=== PATIENT | male | born 1935 | race Caucasian/White ===

== ENCOUNTER 2016-07-07 15:29 | Inpatient (IN) | payer OTHER, MEDICARE ==
[~2016-07-07] VITALS: Ht 175.3 cm; Wt 110.3 kg
[~2016-07-07 15:29] MED LIST: ALLO100T PO; BAYE325T3 PO; DILTSR120 PO; FURO1TAB93 PO; ISOS20 PO; LACT PO; LIDO5%T TOP; NEUR400C PO; NITR.3 SL; NOVOLOGP2 SQ; OXYC1SOL5 PO; PRAV40TA PO; PROS5TAB2 PO; SERO25TA PO; SERT-132 PO; STOO100T PO; TOPR100T15 PO; VITA100018 PO
[2016-07-07 15:38] VITALS: BP 110/53; PULSE 45; RESP 14; TEMP 98.5; O2SAT 99
[2016-07-07] MEDS ORDERED: PIPERACIL-TAZO 3.375 GM PREMIX 50 ML IV ONE (15:45)
[2016-07-07] MEDS ORDERED: VANCOMYCIN INJ 1,000 MG in SODIUM CHLOR 0.9% 250 ML INJ 250 ML IV ONE (15:45)
[2016-07-07] MEDS ORDERED: SODIUM CHLOR 0.9% 1000 ML INJ 1,000 ML IV ONE ×2 (15:45)
[2016-07-07 15:58] VITALS: BP 110/58; PULSE 44; RESP 19; TEMP 98.5; O2SAT 99
[2016-07-07 17:14] LABS: APTT (PATIENT) 28.7 SEC (24.3-30.1); INTERNATIONAL NORMALIZED RATIO 1.2 RATIO; PROTHROMBIN TIME - PATIENT 13.1 SEC (9.8-11.6)
[2016-07-07 17:17] LABS: AUTOMATED NEUTROPHIL # 5.7 TH/MM3 (1.8-7.7); BASOPHIL # 0.1 TH/MM3 (0-0.2); BASOPHIL % 0.6 % (0.0-2.0); EOSINOPHIL # 0.2 TH/MM3 (0-0.4); HEMATOCRIT 27.3 % (39.0-51.0); HEMO FLAGS DIFF FINAL; LYMPH % 37.2 % (9.0-44.0); LYMPHOCYTE # 3.9 TH/MM3 (1.0-4.8); MEAN CELL VOLUME 89.7 FL (80.0-100.0); MEAN CORPUSCULAR HEMOGLOBIN 28.8 PG (27.0-34.0); MEAN CORPUSCULAR HGB CONC 32.1 % (32.0-36.0); MONO % 5.6 % (0.0-8.0); NEUT % 54.6 % (16.0-70.0); PLATELET COUNT 156 TH/MM3 (150-450); RED BLOOD COUNT 3.04 MIL/MM3 (4.50-5.90); RED CELL DISTRIBUTION WIDTH 17.2 % (11.6-17.2); WHITE BLOOD COUNT 10.5 TH/MM3 (4.0-11.0)
[2016-07-07 17:17] LABS: BACTERIA, URINE RARE /hpf; BLOOD, URINE SMALL (NEG); GLUCOSE,URINE NEG (NEG); HYALINE CAST, URINE 17 /lpf (RARE); KETONE, URINE NEG (NEG); NITRITE,URINE NEG (NEG); URINE COLOR YELLOW (YELLW/STRAW)
[2016-07-07 17:18] VITALS: BP 111/53; PULSE 45; RESP 22; O2SAT 100
[2016-07-07 17:18] LABS: COMMENT (UR) CATH-CULTURE IND; CULTURE IF INDICATED CATH CULTURE IND
--- NOTE | 2016-07-07 17:20 | PD ---
HPI Chief Complaint: Respiratory Distress Time Seen by Provider: 15:38 Travel History International Travel<30 days: No Contact w/Intl Traveler<30days: No Traveled to known affect area: No History of Present Illness HPI Patient is an 81-year-old male sent to the emergency room by the [facility] physicians for evaluation of sepsis. As per patient, he went to the [facility] today for a well checkup, reports that he was complaining of shortness of breath at that time. Patient was hypotensive and tachycardic and bradycardic while in the [facility], it was suggested for patient to go to the emergency room for evaluation of possible sepsis. Patient reports that on route to the emergency room, he became diaphoretic and very short of breath. Patient reports that he feels short of breath at this time. Patient denies chest pain. Patient denies any cough or congestion. Patient with no other complaints at this time. PFSH Past Medical History Hx Anticoagulant Therapy: Yes Arthritis: Yes (knees and back) Heart Rhythm Problems: Yes (PVC's) Cancer: Yes (bladder) Cardiac Catheterization: Yes Cardiovascular Problems: Yes (CABG, chf) High Cholesterol: Yes Chemotherapy: Yes Chest Pain: Yes (uses NTG) Congestive Heart Failure: Yes COPD: Yes Cerebrovascular Accident: Yes Diabetes: Yes Endocrine: Yes GERD: Yes Genitourinary: Yes (history of bladder cancer) Hepatitis: No Hiatal Hernia: No Hypertension: Yes Immune Disorder: No Musculoskeletal: Yes Neurologic: Yes Psychiatric: No Reproductive: No Respiratory: Yes Thyroid Disease: No Triglycerides - High: Yes PNEUMOCCOCAL Vaccine (Year): 3 ?: Not Past Surgical History Abdominal Surgery: Yes Appendectomy: Yes Cardiac Surgery: Yes (CABG - 1979) Coronary Artery Bypass Graft: Yes Coronary Stent: Yes Ear Surgery: No Eye Surgery: Yes (cataracts 5 years ago) Genitourinary Surgery: Yes (bladder cancer X 8 most recent cysto Mar, 2014) Gynecologic Surgery: Yes (CYSTO) Joint Replacement: Yes (LEFT KNEE) Oral Surgery: Yes (teeth extracted 20 years) Pacemaker: Yes Thoracic Surgery: No Other Surgery: Yes Social History Alcohol Use: No Tobacco Use: No Substance Use: No Allergies-Medications (Allergen,Severity, Reaction): Coded Allergies: Metformin (Verified Allergy, Severe, DIARRHEA, 04/20/15) Morphine (Verified Allergy, Severe, 04/20/15) Reported Meds & Prescriptions Reported Meds & Active Scripts Active Reported Sertraline (Sertraline HCl) 50 Mg Tab 50 Mg PO DAILY Gabapentin 300 Mg Cap 300 Mg PO TID Lasix (Furosemide) 80 Mg Tab 80 Mg PO BID Aspirin 325 Mg Tab 325 Mg PO DAILY Ferrous Gluconate 325 Mg Tab 325 Mg PO DAILY Duoneb (Ipratropium-Albuterol Neb) 0.5-2.5 Mg/3 Ml Neb 1 Nebule INH Q6HR NEB Bengay Greaseless Topical (Menthol-Methyl Salicylate Topical) 10-15 % Cream 1 Applic TOP TID PRN Tylenol-Codeine #3 (Acetaminophen-Codeine) 300-30 mg Tab 1 Tab PO Q4H PRN Lisinopril 5 Mg Tab 5 Mg PO DAILY Novolin 70-30 Inj (Insulin Human Isoph/Insulin Regular) 1,000 Unit/10 Ml Vial 65 Units SQ BID Terazosin (Terazosin HCl) 1 Mg Cap 1 Mg PO HS Metoprolol Tartrate 50 Mg Tab 50 Mg PO BID Allopurinol 300 Mg Tab 300 Mg PO DAILY Pravastatin 40 Mg Tab 40 Mg PO HS Aquaphor (Emollient) 1 Oin Oin 1 Applic TOP BID Isosorbide Dinitrate 10 Mg Tab 10 Mg PO TID Hyoscyamine (Hyoscyamine Sulfate) 0.125 Mg Tab 0.125 Mg PO Q4H PRN Artificial Tears Opth Drops (Polyvinyl Alcohol) 1.4% Soln 1 Drop EACH EYE TID PRN Review of Systems General / Constitutional: No: Fever Eyes: No: Visual changes HENT: No: Headaches Cardiovascular: Positive: Diaphoresis, No: Chest Pain or Discomfort Respiratory: Positive: Shortness of Breath Gastrointestinal: No: Abdominal Pain Genitourinary: No: Dysuria Musculoskeletal: No: Pain Skin: No Rash Neurologic: No: Weakness Psychiatric: No: Depression Endocrine: No: Polydipsia Hematologic/Lymphatic: No: Easy Bruising Physical Exam Narrative GENERAL: Moderate distress SKIN: Warm and dry. Patient pale-appearing HEAD: Atraumatic. Normocephalic. EYES: Pupils equal and round. No scleral icterus. No injection or drainage. ENT: No nasal bleeding or discharge. Mucous membranes pink and moist. NECK: Trachea midline. No JVD. CARDIOVASCULAR: Patient bradycardic. No murmur appreciated. Patient diaphoretic RESPIRATORY: No accessory muscle use. Clear to auscultation. Breath sounds equal bilaterally. GASTROINTESTINAL: Abdomen soft, non-tender, nondistended. Hepatic and splenic margins not palpable. MUSCULOSKELETAL: No obvious deformities. No clubbing. No cyanosis. No edema. NEUROLOGICAL: Awake and alert. No obvious cranial nerve deficits. Motor grossly within normal limits. Normal speech. PSYCHIATRIC: Appropriate mood and affect; insight and judgment normal. Data Data Last Documented VS Vital Signs Date Time Temp Pulse Resp B/P Pulse Ox O2 Delivery O2 Flow Rate FiO2 07/07/16 18:15 40 20 102/51 96 Nasal Cannula 3 07/07/16 15:58 98.5 Orders Electrocardiogram (07/07/16 15:38) Complete Blood Count With Diff (07/07/16 15:38) Comprehensive Metabolic Panel (07/07/16 15:38) Prothrombin Time / Inr (Pt) (07/07/16 15:38) Act Partial Throm Time (Ptt) (07/07/16 15:38) Lactic Acid Sepsis Protocol (07/07/16 15:38) Magnesium (Mg) (07/07/16 15:38) Lipase (07/07/16 15:38) Ckmb (Isoenzyme) Profile (07/07/16 15:38) Troponin I (07/07/16 15:38) Urinalysis - C+S If Indicated (07/07/16 15:38) Influenzae A/B Antigen (07/07/16 15:38) Blood Culture (07/07/16 15:38) Sodium Chlor 0.9% 1000 Ml Inj (Ns 1000 M (07/07/16 15:45) Sodium Chlor 0.9% 1000 Ml Inj (Ns 1000 M (07/07/16 15:45) Piperacil-Tazo 3.375 Gm Premix (Zosyn 3. (07/07/16 15:45) Vancomycin Inj (Vancomycin Inj) (07/07/16 15:45) Urine Culture (07/07/16 16:30) Ceftriaxone Inj (Rocephin Inj) (07/07/16 17:30) CKMB (07/07/16 16:00) CKMB% (07/07/16 16:00) Chest, Single Ap (07/07/16 17:43) Urinary Catheter Insert/Apply (07/07/16 18:31) Labs Laboratory Tests Test 07/07/16 07/07/16 16:00 16:30 White Blood Count 10.5 TH/MM3 Red Blood Count 3.04 MIL/MM3 Hemoglobin 8.8 GM/DL Hematocrit 27.3 % Mean Corpuscular Volume 89.7 FL Mean Corpuscular Hemoglobin 28.8 PG Mean Corpuscular Hemoglobin 32.1 % Concent Red Cell Distribution Width 17.2 % Platelet Count 156 TH/MM3 Mean Platelet Volume 10.5 FL Neutrophils (%) (Auto) 54.6 % Lymphocytes (%) (Auto) 37.2 % Monocytes (%) (Auto) 5.6 % Eosinophils (%) (Auto) 2.0 % Basophils (%) (Auto) 0.6 % Neutrophils # (Auto) 5.7 TH/MM3 Lymphocytes # (Auto) 3.9 TH/MM3 Monocytes # (Auto) 0.6 TH/MM3 Eosinophils # (Auto) 0.2 TH/MM3 Basophils # (Auto) 0.1 TH/MM3 CBC Comment DIFF FINAL Differential Comment Prothrombin Time 13.1 SEC Prothromb Time International 1.2 RATIO Ratio Activated Partial 28.7 SEC Thromboplast Time Sodium Level 129 MEQ/L Potassium Level 6.2 MEQ/L Chloride Level 91 MEQ/L Carbon Dioxide Level 26.4 MEQ/L Anion Gap 12 MEQ/L Blood Urea Nitrogen 86 MG/DL Creatinine 5.07 MG/DL Estimat Glomerular Filtration 11 ML/MIN Rate Random Glucose 115 MG/DL Calcium Level 8.5 MG/DL Magnesium Level 2.5 MG/DL Total Bilirubin 0.2 MG/DL Aspartate Amino Transf 18 U/L (AST/SGOT) Alanine Aminotransferase 15 U/L (ALT/SGPT) Alkaline Phosphatase 79 U/L Total Creatine Kinase 130 U/L Creatine Kinase MB 3.8 NG/ML Troponin I 0.04 NG/ML Total Protein 6.8 GM/DL Albumin 3.2 GM/DL Lipase 78 U/L Urine Color YELLOW Urine Turbidity CLOUDY Urine pH 5.0 Urine Specific [place] 1.019 Urine Protein 30 mg/dL Urine Glucose (UA) NEG mg/dL Urine Ketones NEG mg/dL Urine Occult Blood SMALL Urine Nitrite NEG Urine Bilirubin NEG Urine Urobilinogen LESS THAN 2.0 MG/DL Urine Leukocyte Esterase LARGE Urine RBC 20 /hpf Urine WBC /hpf Urine Bacteria RARE /hpf Urine Hyaline Casts 17 /lpf Urine Yeast (Budding) FEW Microscopic Urinalysis Comment CATH-CULTURE IND Lactic Acid Level 1.4 mmol/L MDM Medical Decision Making Medical Screen Exam Complete: Yes Emergency Medical Condition: Yes Interpretation(s) Vital Signs Date Time Temp Pulse Resp B/P Pulse Ox O2 Delivery O2 Flow Rate FiO2 07/07/16 15:58 98.5 44 19 110/58 99 Nasal Cannula 4 07/07/16 15:38 98.5 45 14 110/53 99 EKG at 1533: Sinus bradycardia at 44 bpm, QT/QTC 502/365, first-degree AV block Differential Diagnosis ACS, arrhythmia, pneumonia, CHF, electrolyte abnormality, sepsis, UTI Narrative Course Patient is an 81-year-old male who presents to emergency room for evaluation of possible sepsis. Patient reports that he has not been feeling well over the past few days, reports that he went to his primary care doctor's office [facility] the [facility] for a well checkup today. Patient was hypotensive, tachycardic and bradycardic, the [facility] doctors were concerned for possible sepsis and sent patient to the emergency room for evaluation. Patient reports that he felt diaphoretic and shortness of breath while being transported to the ER from [facility]. EKG obtained once patient arrived to ER. Patient was placed on a monitoring manager. Labs as well as blood cultures, x-ray chest ordered. Patient's creatinine is 5.07, patient with acute renal insufficiency. A Rosales catheter was ordered to measure accurate I's and O's. Patient's creatinine on July 22, 2016 was 2.96 Physician Communication Physician Communication case reviewed with dr zacarias who accepts pt to service, request admission under name of Dr Sam Diagnosis Primary Impression: Acute renal insufficiency Additional Impressions: UTI (urinary tract infection) Qualified Code: N30.01 - Acute cystitis with hematuria Bradycardia Admitting Information Admitting Physician Requests: Admit Aida Stern DO Jul 07, 2016 17:20
[2016-07-07] MEDS ORDERED: cefTRIAXone INJ 1,000 MG in SODIUM CHLORIDE 0.9% INJ 100 ML IV ONE (17:30)
[2016-07-07 17:42] LABS: ALKALINE PHOSPHATASE 79 U/L (45-117); CREATINE KINASE 130 U/L (39-308); TOTAL BILIRUBIN ADULT 0.2 MG/DL (0.2-1.0)
[2016-07-07 17:44] LABS: ALT (GPT) 15 U/L (12-78); ANION GAP 12 MEQ/L (5-15); AST (GOT) 18 U/L (15-37); BICARBONATE 26.4 MEQ/L (21.0-32.0); BLOOD UREA NITROGEN 86 MG/DL (7-18); CHLORIDE 91 MEQ/L (98-107); GLOMERULAR FILTRATION RATE 11 ML/MIN (>89); MAGNESIUM 2.5 MG/DL (1.5-2.5); POTASSIUM 6.2 MEQ/L (3.5-5.1); SODIUM (NA) 129 MEQ/L (136-145)
[2016-07-07 17:54] LABS: CKMB 3.8 NG/ML (0.5-3.6)
[2016-07-07] MEDS ORDERED: AQUAOIN2 TOP (17:54)
[2016-07-07] MEDS ORDERED: TERA1CAP3 PO (17:54)
[2016-07-07] MEDS ORDERED: POLY99.0 EACH EYE (17:54)
[2016-07-07] MEDS ORDERED: METO50TA PO (17:54)
[2016-07-07] MEDS ORDERED: HYOS0.128 PO (17:54)
[2016-07-07] MEDS ORDERED: PRAV40TA2 PO (17:54)
[2016-07-07] MEDS ORDERED: ALLO300T2 PO (17:54)
[2016-07-07] MEDS ORDERED: ISOS10TA PO (17:54)
[2016-07-07] MEDS ORDERED: NOVO7030P2 SQ (17:57)
[2016-07-07] MEDS ORDERED: BENGCRE TOP (17:57)
[2016-07-07] MEDS ORDERED: TYLETAB34 PO (17:57)
[2016-07-07] MEDS ORDERED: LISI-519 PO (17:57)
[2016-07-07] MEDS ORDERED: GABA300C5 PO (18:00)
[2016-07-07] MEDS ORDERED: SERT-132 PO (18:00)
[2016-07-07] MEDS ORDERED: FERR325T72 PO (18:00)
[2016-07-07] MEDS ORDERED: IPRASOL INH (18:00)
[2016-07-07] MEDS ORDERED: ASPI325T PO (18:00)
[2016-07-07] MEDS ORDERED: FURO1TAB61 PO (18:00)
[2016-07-07 18:15] VITALS: BP 102/51; PULSE 40; RESP 20; O2SAT 95; O2SAT 96
--- NOTE | 2016-07-07 18:21 | RADRPT ---
EXAM DATE/TIME: 07/07/2016 18:00 [facility] COMPARISON: CHEST SINGLE AP, April 20, 2015, 13:14. INDICATIONS : Chest pain. MEDICAL HISTORY : Congestive heart failure. Chronic obstructive pulmonary disease. SURGICAL HISTORY : CABG. ENCOUNTER: Initial ACUITY: 2 days PAIN SCORE: 3/10 LOCATION: chest FINDINGS: There is evidence for prior median sternotomy. Moderate cardiomegaly is seen. Bilateral pleural effus ions are present with perivascular pulmonary edema and pneumonia is difficult to exclude in the lung bases. CONCLUSION: Volume overload and CHF. Sheryl Garzon MD on July 07, 2016 at 18:19 Board Certified Radiologist. This report was verified electronically.
[2016-07-07] MEDS ORDERED: NALOXONE HCL 0.4 MG/ML AMP IV PRN (20:15)
[2016-07-07] MEDS ORDERED: SODIUM CHLORIDE 0.9% FLUSH 5 ML FLUSH FLUSH PRN (20:15)
[2016-07-07] MEDS: SODIUM CHLORIDE 0.9% FLUSH 5 ML FLUSH FLUSH SCH (21:58)
[2016-07-07 22:28] VITALS: BP 102/50; PULSE 51; RESP 18; O2SAT 97
[2016-07-08] VITALS (10 sets, daily range): BP systolic 90–130; BP diastolic 45–60; PULSE 46–68; RESP 18–20; TEMP 97–98.2; O2SAT 92–100
[2016-07-08] MEDS ORDERED: ACETAMINOPHEN 325 MG TAB PO ONE (03:45)
--- NOTE | 2016-07-08 04:14 | HHI.HP ---
[facility] Ad[facility] Diagnosis Acute renal insuffiency, uti, bradycardia Diagnoses: Chief Complaint: Very tired Travel History International Travel<30 Days: No Contact w/Intl Traveler <30 Da: No Traveled to Known Affected Are: No History of Present Illness History from patient, ER physician notes, and review of medical records. Patient is somewhat of a poor historian. He initially stated that he came to the hospital because he was very tired. He knew that something happened at the [facility] but he was in able to specify it initially. However he states he has been extremely tired for the past 6 weeks. He states he was also having some nausea. But did not vomit. He stated he just was too weak that he could not even lift up his hand to press the TV but 10. He thinks that that is abnormal. He reports this was the reason why he made appointment with his primary care doctor at the [facility]. However at the [facility] yesterday, patient was found to be hypotensive, with heart rate going between tachycardia and bradycardia as per notes. It was also reported that patient was short of breath and diaphoretic at the clinic. There for that doctor there had sent him to the hospital for evaluation of sepsis. In the emergency room, patient received normal saline 2 L IV fluids total Patient however denies any recent fever/nausea/vomiting/diarrhea. He denies seeing blood in his stool or urine. Also denies any fever. Denies chest pain/palpitations. Denies any falls. Review of Systems Except as stated in HPI: all other systems reviewed are Neg Past Family Social History Past Medical History Hypertension Diabetes CADstatus post CABG [facility] echo in April 2015reviewed. CVA Bladder cancer Anemia Peripheral neuropathy CKDstage III Osteoporosis Depression Gout Past Surgical History Bladder cancer excisions Appendectomy Cataract surgery bilaterally Left knee surgery Neck surgery Reported Medications Patient's medications listed on EMRreviewed. This is reconciled by pharmacy clinical coordinator. Allergies: Coded Allergies: Metformin (Verified Allergy, Severe, DIARRHEA, 04/20/15) Morphine (Verified Allergy, Severe, 04/20/15) Family History Patient denies any family history of any medical issues. Per chart, there was family history of ND and cancers Social History Denies smoking/alcohol abuse/drug abuse. Per chart, he was a former smoker. Physical Exam Vital Signs Vital Signs Date Time Temp Pulse Resp B/P Pulse Ox O2 Delivery O2 Flow Rate FiO2 07/08/16 04:04 98.2 48 20 111/53 99 07/08/16 00:08 50 20 90/45 92 Nasal Cannula 3 07/07/16 22:29 97 Nasal Cannula 3 07/07/16 22:28 51 18 102/50 97 Nasal Cannula 3 07/07/16 18:15 40 20 102/51 96 Nasal Cannula 3 07/07/16 17:30 42 24 98 Nasal Cannula 3 07/07/16 17:18 45 22 111/53 100 Nasal Cannula 3 07/07/16 15:58 98.5 44 19 110/58 99 Nasal Cannula 4 07/07/16 15:38 98.5 45 14 110/53 99 Physical Exam GENERAL: This is elderly gentleman, not in acute distress, however looks chronically ill. SKIN: Superficial ecchymosis HEAD: Atraumatic. Normocephalic. No temporal or scalp tenderness. EYES: . No scleral icterus. No injection or drainage. ENT: Nose without bleeding, purulent drainage or septal hematoma. . Airway patent. NECK: Trachea midline. No JVD Supple, nontender, no meningeal signs. CARDIOVASCULAR: Regular rate and rhythm without murmurs, gallops, or rubs. RESPIRATORY: Bilateral expiratory wheezing mild. GASTROINTESTINAL: Abdomen soft, non-tender, nondistended. No guarding. : Patient has Rosales catheter. Was placed in ER. MUSCULOSKELETAL: Extremities without clubbing, cyanosis, or edema. Right lower extremity much bigger than the left. Bilateral pitting edema about 2+. NEUROLOGICAL: Awake and alert.Motor and sensory grossly within normal limits. Normal speech. Laboratory Laboratory Tests Test 07/07/16 07/07/16 16:00 16:30 White Blood Count 10.5 Red Blood Count 3.04 Hemoglobin 8.8 Hematocrit 27.3 Mean Corpuscular Volume 89.7 Mean Corpuscular Hemoglobin 28.8 Mean Corpuscular Hemoglobin 32.1 Concent Red Cell Distribution Width 17.2 Platelet Count 156 Mean Platelet Volume 10.5 Neutrophils (%) (Auto) 54.6 Lymphocytes (%) (Auto) 37.2 Monocytes (%) (Auto) 5.6 Eosinophils (%) (Auto) 2.0 Basophils (%) (Auto) 0.6 Neutrophils # (Auto) 5.7 Lymphocytes # (Auto) 3.9 Monocytes # (Auto) 0.6 Eosinophils # (Auto) 0.2 Basophils # (Auto) 0.1 CBC Comment DIFF FINAL Differential Comment Prothrombin Time 13.1 Prothromb Time International 1.2 Ratio Activated Partial 28.7 Thromboplast Time Sodium Level 129 Potassium Level 6.2 Chloride Level 91 Carbon Dioxide Level 26.4 Anion Gap 12 Blood Urea Nitrogen 86 Creatinine 5.07 Estimat Glomerular Filtration 11 Rate Random Glucose 115 Calcium Level 8.5 Magnesium Level 2.5 Total Bilirubin 0.2 Aspartate Amino Transf 18 (AST/SGOT) Alanine Aminotransferase 15 (ALT/SGPT) Alkaline Phosphatase 79 Total Creatine Kinase 130 Creatine Kinase MB 3.8 Troponin I 0.04 Total Protein 6.8 Albumin 3.2 Lipase 78 Urine Color YELLOW Urine Turbidity CLOUDY Urine pH 5.0 Urine Specific [place] 1.019 Urine Protein 30 Urine Glucose (UA) NEG Urine Ketones NEG Urine Occult Blood SMALL Urine Nitrite NEG Urine Bilirubin NEG Urine Urobilinogen LESS THAN 2.0 Urine Leukocyte Esterase LARGE Urine RBC 20 Urine WBC Urine Bacteria RARE Urine Hyaline Casts 17 Urine Yeast (Budding) FEW Microscopic Urinalysis Comment CATH-CULTURE IND Lactic Acid Level 1.4 Date/Time Procedure Status Source Growth 07/07/16 16:30 Urine Culture Worksheet Urine Catheterized Urine Pending 07/07/16 16:30 Influenza Types A,B Antigen (ROSALINO) - Final Complete Nasal Aspirate NEGATIVE FOR FLU A AND B ANTIGEN.... 07/07/16 16:10 Aerobic Blood Culture Received Blood Peripheral Pending 07/07/16 16:10 Anaerobic Blood Culture Received Blood Peripheral Pending Result Diagram: 07/07/16 1600 07/07/16 1600 Imaging Last 48 hours Impressions Lower Extremity Ultrasound 07/08/16 0000 Signed Impressions: Service Date/Time: Friday, July 08, 2016 05:49 - CONCLUSION: Normal examination. Larry Mccullough MD Chest X-Ray 07/07/16 1743 Signed Impressions: Service Date/Time: July 18:00 - CONCLUSION: Volume overload and CHF. K. Jan Garzon MD Assessment and Plan Problem List: (1) Acute renal insufficiency ICD Code: N28.9 Status: Acute (2) Hyperkalemia ICD Code: E87.5 Status: Acute (3) UTI (urinary tract infection) ICD Code: N39.0 Status: Acute (4) Bradycardia ICD Code: R00.1 Status: Acute (5) Weakness ICD Code: R53.1 Status: Acute Assessment and Plan Impression: Generalized weakness/hypotension/tachycardia/bradycardia episodesall likely due to UTI/Renal failure/Hyponatremia UTI Hyperkalemia Hyponatremia Acute Renal Failure Hypertension Diabetes CADstatus post CABG CHFlatest echo in April 2015reviewed. CVA Bladder cancer Anemia Peripheral neuropathy CKDstage III Osteoporosis Depression Gout Plan: pt received 2L NS bolus in ER will repeat labs post hydration also received vanco/zosyn/rocephin in ER for now, will chose cefepime per crcl follow urine cx hyperkalemia was not treated in ER - will give cocktail now pt has been on tele monitoring Will follow sodium levels. Obtain renal/kidney/bladder ultrasound in a.m. Discontinue Rosales. Both patient and ER physician note stated that Rosales catheter was placed for measurement of input/output. There was no evidence of urinary retention. Nursing notes from ER also reviewed. Initial volume was only 5 ml./ Hold antihypertensives. Hold long-acting insulin and oral hypoglycemics. We'll monitor fingersticks and cover with sliding scale coverage. Avoid nephrotoxic medications. Nephrology consult. DVT prophylaxison heparin. GI prophylaxis on pantoprazole. Discussed Condition With Patient, patient's nurse Physician Certification 2 Midnight Certification Type: Admission for Inpatient Services Order for Inpatient Services The services are ordered in accordance with Medicare regulations or non- Medicare payer requirements, as applicable. In the case of services not specified as inpatient-only, they are appropriately provided as inpatient services in accordance with the 2-midnight benchmark. Estimated LOS (days): 3 days is the estimated time the patient will need to remain in the hospital, assuming treatment plan goals are met and no additional complications. Post-Hospital Plan: Not yet determined Problem Qualifiers (1) UTI (urinary tract infection): Qualified Code: N30.01 - Acute cystitis with hematuria Mathieu Sam MD Jul 08, 2016 04:14
[2016-07-08] MEDS: HEPARIN SODIUM - SQ 10,000 UNITS/ML VIAL SQ SCH ×3 (06:00→21:38)
--- NOTE | 2016-07-08 06:28 | RADRPT ---
EXAM DATE/TIME: 07/08/2016 05:49 [facility] COMPARISON: No previous studies available for comparison. INDICATIONS : Shortness of breath. Leg pain. MEDICAL HISTORY : Hypercholesterolemia. Hypertension. Gastroesophageal reflux disease. PVC. Bladder cancer. CHF. Tatiana motherapy. Diabetic. SURGICAL HISTORY : CABGCoronary artery stent. Total knee replacement, left. ENCOUNTER: Initial ACUITY: 1 day PAIN SCORE: 10/10 LOCATION: Bilateral leg. TECHNIQUE: Venous ultrasound of the left and right leg was performed from the inguinal ligament to the proximal calf. Real-time, color Doppler and spectral tracing, compression and augmentation techniques were us ed. FINDINGS: RIGHT LEG: There is normal compressibility of the deep venous system from the inguinal region to the proximal ca lf. No echogenic clot is seen in the lumen of the common femoral, femoral, popliteal, and posterior tibial veins. There is a normal response of the venous system to proximal and distal augmentation an d respiration. LEFT LEG: There is normal compressibility of the deep venous system from the inguinal region to the proximal ca lf. No echogenic clot is seen in the lumen of the common femoral, femoral, popliteal, and posterior tibial veins. There is a normal response of the venous system to proximal and distal augmentation an d respiration. CONCLUSION: Normal examination. Larry Mccullough MD on July 08, 2016 at 6:26 Board Certified Radiologist. This report was verified electronically.
[2016-07-08 07:43] LABS: AUTOMATED NEUTROPHIL # 4.6 TH/MM3 (1.8-7.7); BASOPHIL % 0.5 % (0.0-2.0); EOSINOPHIL # 0.3 TH/MM3 (0-0.4); HEMATOCRIT 27.6 % (39.0-51.0); HEMO FLAGS DIFF FINAL; LYMPH % 36.5 % (9.0-44.0); LYMPHOCYTE # 3.2 TH/MM3 (1.0-4.8); MEAN CELL VOLUME 89.8 FL (80.0-100.0); MEAN CORPUSCULAR HEMOGLOBIN 28.6 PG (27.0-34.0); MEAN CORPUSCULAR HGB CONC 31.8 % (32.0-36.0); MONO % 6.1 % (0.0-8.0); NEUT % 52.9 % (16.0-70.0); PLATELET COUNT 159 TH/MM3 (150-450); RED BLOOD COUNT 3.07 MIL/MM3 (4.50-5.90); RED CELL DISTRIBUTION WIDTH 17.1 % (11.6-17.2); WHITE BLOOD COUNT 8.8 TH/MM3 (4.0-11.0)
[2016-07-08 08:10] LABS: BICARBONATE 26.8 MEQ/L (21.0-32.0); POTASSIUM 5.3 MEQ/L (3.5-5.1)
[2016-07-08] MEDS ORDERED: ARTIFICIAL TEARS OPTH SOLN 15 ML BTL EACH EYE PRN (08:15)
[2016-07-08] MEDS ORDERED: DEXTROSE 50% IN WATER 50 ML VIAL(D50) IV PUSH PRN (08:15)
[2016-07-08] MEDS ORDERED: HYOSCYAMINE 0.125 MG TAB PO PRN (08:15)
[2016-07-08] MEDS ORDERED: GLUCAGON 1 MG/ML VIAL OTHER PRN (08:15)
[2016-07-08] MEDS ORDERED: SODIUM POLYSTYRENE SULFONATE SUSP 15 GM/60 ML CUP PO ONE (08:30)
[2016-07-08] MEDS ORDERED: DEXTROSE 50% IN WATER 50 ML VIAL(D50) IV PUSH ONE (08:30)
[2016-07-08] MEDS ORDERED: INSULIN HUMAN REGULAR 1,000 UNITS/10 ML VIAL IVP ONE (08:30)
[2016-07-08] MEDS ORDERED: CALCIUM GLUCONATE 10% 1 GM/10 ML VIAL IV PUSH ONE (08:30)
[2016-07-08] MEDS ORDERED: CALCIUM GLUCONATE INJ 1 GM in SODIUM CHLORIDE 0.9% INJ 100 ML IV ONE (09:00)
[2016-07-08] MEDS ORDERED: CEFEPIME INJ 2,000 MG in SODIUM CHLORIDE 0.9% INJ 100 ML IV SCH (09:00)
[2016-07-08] MEDS: RESP: ALBUTEROL 2.5 MG/IPRATROPIUM 0.5 MG NEB (SCH) NEB ×4 (09:05→20:29)
[2016-07-08] MEDS: SODIUM CHLORIDE 0.9% FLUSH 5 ML FLUSH FLUSH SCH ×2 (09:17→21:00)
[2016-07-08] MEDS: ASPIRIN 325 MG TAB PO SCH (10:55)
[2016-07-08] MEDS: SERTRALINE HCL 50 MG TAB PO SCH (10:55)
[2016-07-08] MEDS: PANTOPRAZOLE SOD 40 MG DELAYED RELEASE TAB PO SCH (10:56)
[2016-07-08] MEDS: LACTOBACILLUS ACIDOPHILUS TAB PO SCH ×3 (10:56→17:16)
[2016-07-08] MEDS: INSULIN NovoLIN REGULAR SUPPLEMENTAL SCALE SQ SCH ×3 (11:00→21:00)
--- NOTE | 2016-07-08 12:54 | HHI.PR ---
Subjective Remarks This is a pleasant 81 y/o male who has Renal Injury, UTI and Bradycardia, came with weakness, received IV fluids, Hypertension, DM II, CAD status post CABG, CHF, CVA, Bladder cancer, Anemia, Peripheral neuropathy, CKD III, Osteoporosis, Depression, Gout, patient stable admitted today discussed with Patient, with Nurse Miss Leos and with admitting physician. has Hyperkalemia Improving, Nephrology specialist following. Objective Vital Signs Date Time Temp Pulse Resp B/P Pulse Ox O2 Delivery O2 Flow Rate FiO2 07/08/16 12:14 97.5 55 20 115/56 96 07/08/16 09:08 99 Nasal Cannula 2.00 07/08/16 08:21 97.8 47 18 117/58 100 07/08/16 05:26 46 07/08/16 04:04 98.2 48 20 111/53 99 07/08/16 00:08 50 20 90/45 92 Nasal Cannula 3 07/07/16 22:29 97 Nasal Cannula 3 07/07/16 22:28 51 18 102/50 97 Nasal Cannula 3 07/07/16 18:15 40 20 102/51 96 Nasal Cannula 3 07/07/16 17:30 42 24 98 Nasal Cannula 3 07/07/16 17:18 45 22 111/53 100 Nasal Cannula 3 07/07/16 15:58 98.5 44 19 110/58 99 Nasal Cannula 4 07/07/16 15:38 98.5 45 14 110/53 99 Result Diagram: 07/08/16 0652 07/08/16 0652 Imaging Last Impressions Lower Extremity Ultrasound 07/08/16 0000 Signed Impressions: Service Date/Time: Friday, July 08, 2016 05:49 - CONCLUSION: Normal examination. Larry Mccullough MD Chest X-Ray 07/07/16 1743 Signed Impressions: Service Date/Time: July 18:00 - CONCLUSION: Volume overload and CHF. K. Jan Garzon MD Procedures No procedures performed. Other Results Laboratory Tests Test 07/07/16 07/07/16 07/08/16 16:00 16:30 06:52 Prothrombin Time 13.1 SEC Prothromb Time International 1.2 RATIO Ratio Activated Partial 28.7 SEC Thromboplast Time Magnesium Level 2.5 MG/DL Total Bilirubin 0.2 MG/DL Aspartate Amino Transf 18 U/L (AST/SGOT) Alanine Aminotransferase 15 U/L (ALT/SGPT) Alkaline Phosphatase 79 U/L Total Creatine Kinase 130 U/L Creatine Kinase MB 3.8 NG/ML Troponin I 0.04 NG/ML Total Protein 6.8 GM/DL Albumin 3.2 GM/DL Lipase 78 U/L Urine Color YELLOW Urine Turbidity CLOUDY Urine pH 5.0 Urine Specific [place] 1.019 Urine Protein 30 mg/dL Urine Glucose (UA) NEG mg/dL Urine Ketones NEG mg/dL Urine Occult Blood SMALL Urine Nitrite NEG Urine Bilirubin NEG Urine Urobilinogen LESS THAN 2.0 MG/DL Urine Leukocyte Esterase LARGE Urine RBC 20 /hpf Urine WBC /hpf Urine Bacteria RARE /hpf Urine Hyaline Casts 17 /lpf Urine Yeast (Budding) FEW Microscopic Urinalysis Comment CATH-CULTURE IND Lactic Acid Level 1.4 mmol/L White Blood Count 8.8 TH/MM3 Red Blood Count 3.07 MIL/MM3 Hemoglobin 8.8 GM/DL Hematocrit 27.6 % Mean Corpuscular Volume 89.8 FL Mean Corpuscular Hemoglobin 28.6 PG Mean Corpuscular Hemoglobin 31.8 % Concent Red Cell Distribution Width 17.1 % Platelet Count 159 TH/MM3 Mean Platelet Volume 10.3 FL Neutrophils (%) (Auto) 52.9 % Lymphocytes (%) (Auto) 36.5 % Monocytes (%) (Auto) 6.1 % Eosinophils (%) (Auto) 4.0 % Basophils (%) (Auto) 0.5 % Neutrophils # (Auto) 4.6 TH/MM3 Lymphocytes # (Auto) 3.2 TH/MM3 Monocytes # (Auto) 0.5 TH/MM3 Eosinophils # (Auto) 0.3 TH/MM3 Basophils # (Auto) 0.0 TH/MM3 CBC Comment DIFF FINAL Differential Comment Sodium Level 128 MEQ/L Potassium Level 5.3 MEQ/L Chloride Level 91 MEQ/L Carbon Dioxide Level 26.8 MEQ/L Anion Gap 10 MEQ/L Blood Urea Nitrogen 79 MG/DL Creatinine 4.78 MG/DL Estimat Glomerular Filtration 12 ML/MIN Rate Random Glucose 90 MG/DL Calcium Level 8.0 MG/DL Objective Remarks GENERAL: This is elderly gentleman, not in acute distress, however looks chronically ill. SKIN: Superficial ecchymosis HEAD: Atraumatic. Normocephalic. No temporal or scalp tenderness. EYES: . No scleral icterus. No injection or drainage. ENT: Nose without bleeding, purulent drainage or septal hematoma. . Airway patent. NECK: Trachea midline. No JVD Supple, nontender, no meningeal signs. CARDIOVASCULAR: Regular rate and rhythm without murmurs, gallops, or rubs. RESPIRATORY: Bilateral expiratory wheezing mild. GASTROINTESTINAL: Abdomen soft, non-tender, nondistended. No guarding. : Patient has Rosales catheter. asked for removal. MUSCULOSKELETAL: Extremities without clubbing, cyanosis, or edema. Right lower extremity much bigger than the left. Bilateral pitting edema about 2+. NEUROLOGICAL: Awake and alert.Motor and sensory grossly within normal limits. Normal speech. Medications and IVs Current Medications Medications (Trade) Dose Ordered Sig/Bucky Route Start Time Stop Time Status Last Admin (NS Flush) 2 ml UNSCH PRN FLUSH 07/07/16 20:15 (NS Flush) 2 ml BID FLUSH 07/07/16 21:00 07/08/16 09:17 (Heparin Inj) 5,000 units Q8H SQ 07/08/16 06:00 07/08/16 06:00 (Narcan Inj) 0.4 mg UNSCH PRN IV 07/07/16 20:15 (Aspirin) 325 mg DAILY PO 07/08/16 09:00 07/08/16 10:55 (Levsin) 0.125 mg Q4H PRN PO 07/08/16 08:15 (Tears Naturale Opth Soln) 1 drop TID PRN EACH EYE 07/08/16 08:15 (Zoloft) 50 mg DAILY PO 07/08/16 09:00 07/08/16 10:55 (D50w (Vial) Inj) 25 ml UNSCH PRN IV PUSH 07/08/16 08:15 (Glucagon Inj) 1 mg UNSCH PRN OTHER 07/08/16 08:15 (Protonix) 40 mg DAILY PO 07/08/16 09:00 07/08/16 10:56 Lactobacillus Acidophilus 1 tab 1 tab TID PO 07/08/16 09:00 07/08/16 10:56 (Maxipime Inj/NS Inj) 100 ml @ 200 mls/hr Q24H IV 07/09/16 10:00 (Tylenol) 650 mg Q4H PRN PO 07/08/16 13:00 A/P Assessment and Plan 1. Generalized Weakness secondary to multiple admissions to the Hospital, also followed at [facility] [place], recurrent UTI, chronic deconditioning, will need Branch Sales Manager, OT/PT for discharge to Rehab. 2. UTI on Maxipime. 3. Electrolyte derangement Improving and Nephrology specialist following. 4. Bradycardia stable. 5. Acute Renal Injury on chronic Renal injury Nephrology specialist following. 6. DM II continue sliding scale. 7. Hypertension controlled. 8. CVA by history 9. Bladder cancer 10. Anemia 11. Osteoporosis 12. Depressio Hydration given in ER, Vancomycin, Zosyn and Rocephin, now on Cefepime. Follow urine culture DVT prophylaxison heparin. GI prophylaxis on pantoprazole. Discussed with Patient and Nurse Miss Leos meggan. Doppler US of LE done- negative for DVT Discharge Planning Branch Sales Manager for discharge Satnam Najera MD Jul 08, 2016 12:54
--- NOTE | 2016-07-08 13:16 | PD.CONS ---
HPI Service Nephrology Consult Requested By Reason for Consult Acute on CKD Primary Care Physician [facility] History of Present Illness This is an 81 y/o male pt with extensive PMH as outlined below including HTN, DM , CHF. [facility], hypot[facility], rule out sepsis. He has CKD, follows with Dr. Valentin, last seen a few weeks ago. he is unsure of his baseline. Apparently he was recently admitted to [facility]. On arrival His creatinine was 5.07, improved to 4.58 overnight. K was 6.2, he was treated with insulin, bicarb, dextrose, and Kayexalate. We were consulted for management. He has been bradycardic, hypotensive. UA suggesting UTI, he has been placed on Zosyn, vancomycin, Rocephin, and was given 2 liters of NS in the ER. He has a sosa, is non oliguric. (Kiya Drew) Review of Systems Constitutional: COMPLAINS OF: Fatigue, Fever, Change in appetite Cardiovascular: COMPLAINS OF: Lower Extremity Edema (Kiya Drew) Past Family Social History Allergies: Coded Allergies: Metformin (Verified Allergy, Severe, DIARRHEA, 04/20/15) Morphine (Verified Allergy, Severe, 04/20/15) Past Medical History Hypertension Diabetes CADstatus post CABG CHFlatest echo in April 2015, EF 55% CVA Bladder cancer Anemia Peripheral neuropathy CKDunknown baseline Osteoporosis Depression Gout Past Surgical History Bladder cancer excisions Appendectomy Cataract surgery bilaterally Left knee surgery Neck surgery Reported Medications Sertraline (Sertraline HCl) 50 Mg Tab 50 Mg PO DAILY Gabapentin 300 Mg Cap 300 Mg PO TID Lasix (Furosemide) 80 Mg Tab 80 Mg PO BID Aspirin 325 Mg Tab 325 Mg PO DAILY Ferrous Gluconate 325 Mg Tab 325 Mg PO DAILY Duoneb (Ipratropium-Albuterol Neb) 0.5-2.5 Mg/3 Ml Neb 1 Nebule INH Q6HR NEB Bengay Greaseless Topical (Menthol-Methyl Salicylate Topical) 10-15 % Cream 1 Applic TOP TID PRN Tylenol-Codeine #3 (Acetaminophen-Codeine) 300-30 mg Tab 1 Tab PO Q4H PRN Lisinopril 5 Mg Tab 5 Mg PO DAILY Novolin 70-30 Inj (Insulin Human Isoph/Insulin Regular) 1,000 Unit/10 Ml Vial 65 Units SQ BID Terazosin (Terazosin HCl) 1 Mg Cap 1 Mg PO HS Metoprolol Tartrate 50 Mg Tab 50 Mg PO BID Allopurinol 300 Mg Tab 300 Mg PO DAILY Pravastatin 40 Mg Tab 40 Mg PO HS Aquaphor (Emollient) 1 Oin Oin 1 Applic TOP BID Isosorbide Dinitrate 10 Mg Tab 10 Mg PO TID Hyoscyamine (Hyoscyamine Sulfate) 0.125 Mg Tab 0.125 Mg PO Q4H PRN Artificial Tears Opth Drops (Polyvinyl Alcohol) 1.4% Soln 1 Drop EACH EYE TID PRN Active Ordered Medications Last 72 hours Impressions Lower Extremity Ultrasound 07/08/16 0000 Signed Impressions: Service Date/Time: Friday, July 08, 2016 05:49 - CONCLUSION: Normal examination. Larry Mccullough MD Chest X-Ray 07/07/16 1743 Signed Impressions: Service Date/Time: July 18:00 - CONCLUSION: Volume overload and CHF. K. Jan Garzon MD Family History NO hx of renal disorders Social History , lives with non ambulatory former smoker no ETOH full code (Kiya Drew) Physical Exam Vital Signs Vital Signs Date Time Temp Pulse Resp B/P Pulse Ox O2 Delivery O2 Flow Rate FiO2 07/08/16 12:14 97.5 55 20 115/56 96 07/08/16 09:08 99 Nasal Cannula 2.00 07/08/16 08:21 97.8 47 18 117/58 100 07/08/16 05:26 46 07/08/16 04:04 98.2 48 20 111/53 99 07/08/16 00:08 50 20 90/45 92 Nasal Cannula 3 07/07/16 22:29 97 Nasal Cannula 3 07/07/16 22:28 51 18 102/50 97 Nasal Cannula 3 07/07/16 18:15 40 20 102/51 96 Nasal Cannula 3 07/07/16 17:30 42 24 98 Nasal Cannula 3 07/07/16 17:18 45 22 111/53 100 Nasal Cannula 3 07/07/16 15:58 98.5 44 19 110/58 99 Nasal Cannula 4 07/07/16 15:38 98.5 45 14 110/53 99 Physical Exam Elderly male, awake/alert Lungs: diminished in bases, clear in upper [place] CV: S1/s2, regular but omkar abd: obese, soft, multiple areas of ecchymosis ext: dependent edema trace sosa in place Laboratory Laboratory Tests Test 07/07/16 07/07/16 07/08/16 16:00 16:30 06:52 White Blood Count 10.5 8.8 Red Blood Count 3.04 3.07 Hemoglobin 8.8 8.8 Hematocrit 27.3 27.6 Mean Corpuscular Volume 89.7 89.8 Mean Corpuscular Hemoglobin 28.8 28.6 Mean Corpuscular Hemoglobin 32.1 31.8 Concent Red Cell Distribution Width 17.2 17.1 Platelet Count 156 159 Mean Platelet Volume 10.5 10.3 Neutrophils (%) (Auto) 54.6 52.9 Lymphocytes (%) (Auto) 37.2 36.5 Monocytes (%) (Auto) 5.6 6.1 Eosinophils (%) (Auto) 2.0 4.0 Basophils (%) (Auto) 0.6 0.5 Neutrophils # (Auto) 5.7 4.6 Lymphocytes # (Auto) 3.9 3.2 Monocytes # (Auto) 0.6 0.5 Eosinophils # (Auto) 0.2 0.3 Basophils # (Auto) 0.1 0.0 CBC Comment DIFF FINAL DIFF FINAL Differential Comment Prothrombin Time 13.1 Prothromb Time International 1.2 Ratio Activated Partial 28.7 Thromboplast Time Sodium Level 129 128 Potassium Level 6.2 5.3 Chloride Level 91 91 Carbon Dioxide Level 26.4 26.8 Anion Gap 12 10 Blood Urea Nitrogen 86 79 Creatinine 5.07 4.78 Estimat Glomerular Filtration 11 12 Rate Random Glucose 115 90 Calcium Level 8.5 8.0 Magnesium Level 2.5 Total Bilirubin 0.2 Aspartate Amino Transf 18 (AST/SGOT) Alanine Aminotransferase 15 (ALT/SGPT) Alkaline Phosphatase 79 Total Creatine Kinase 130 Creatine Kinase MB 3.8 Troponin I 0.04 Total Protein 6.8 Albumin 3.2 Lipase 78 Urine Color YELLOW Urine Turbidity CLOUDY Urine pH 5.0 Urine Specific [place] 1.019 Urine Protein 30 Urine Glucose (UA) NEG Urine Ketones NEG Urine Occult Blood SMALL Urine Nitrite NEG Urine Bilirubin NEG Urine Urobilinogen LESS THAN 2.0 Urine Leukocyte Esterase LARGE Urine RBC 20 Urine WBC Urine Bacteria RARE Urine Hyaline Casts 17 Urine Yeast (Budding) FEW Microscopic Urinalysis Comment CATH-CULTURE IND Lactic Acid Level 1.4 Date/Time Procedure Status Source Growth 07/07/16 16:30 Urine Culture Worksheet Urine Catheterized Urine Pending 07/07/16 16:30 Influenza Types A,B Antigen (ROSALINO) - Final Complete Nasal Aspirate NEGATIVE FOR FLU A AND B ANTIGEN.... 07/07/16 16:10 Aerobic Blood Culture - Preliminary Resulted Blood Peripheral NO GROWTH IN 1 DAY 07/07/16 16:10 Anaerobic Blood Culture - Preliminary Resulted Blood Peripheral NO GROWTH IN 1 DAY (Kiya Drew) Result Diagram: 07/08/16 0652 07/08/16 0652 Imaging Last 72 hours Impressions Lower Extremity Ultrasound 07/08/16 0000 Signed Impressions: Service Date/Time: Friday, July 08, 2016 05:49 - CONCLUSION: Normal examination. Larry Mccullough MD Chest X-Ray 07/07/16 1743 Signed Impressions: Service Date/Time: July 18:00 - CONCLUSION: Volume overload and CHF. Sheryl Garzon MD (Kiya Drew) Assessment and Plan Problem List: (1) ZAN (acute kidney injury) Plan: on CKD, unknown baseline in 2014 creatinine 1.72/GFR 39 in 2016 cr 2.96, GFR 21 his creatinine was over 5 on arrival, it has improved since admission he is non oliguric, has sosa hyperkalemic and treated with insulin, bicarbonate, and dextrose with Kayexalate ; repeat K is better ZAN likely ATN from bradycardia, hypotension, possible sepsis cautious hydration, begin 0.9% NS, he is also hyponatremic follow renal panel closely renal US ordered obtain repeat echo to evaluate LVEF avoid nephrotoxins, monitor drug levels when appropriate (2) Urinary tract infection Plan: continue antibiotics, await culture report (3) DM (diabetes mellitus) Plan: has not been requiring insulin, monitor (4) HTN (hypertension) Plan: he has been relatively hypotensive lately, hold HTN medications (5) CHF (congestive heart failure) Plan: monitor fluid volume status EF 55% in 2014 (Kiya Drew) Assessment and Plan patient was seen and examined. Likely has stage IV CKD. Creatinine was 2.96 in . Current baseline is not known. Admitted hypotension, bradycardia, possible sepsis. Continue IVF cautiously. Avoid nephrotoxic agents. Monitor hyperkalemia: better. May have chronic hyponatremia, etiology needs to be established. 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 Obtain cortisol level. (Guicho Pollard MD) Kiya DrewP Jul 08, 2016 13:15 Guicho Pollard MD Jul 08, 2016 16:23
[2016-07-08] MEDS: ACETAMINOPHEN/CODEINE 300 MG/30 MG TAB PO PRN ×2 (15:18→21:38)
[2016-07-08] MEDS: SODIUM CHLOR 0.9% 1000 ML INJ 1,000 ML IV SCH (15:19)
--- NOTE | 2016-07-08 16:31 | RADRPT ---
EXAM DATE/TIME: 07/08/2016 15:25 [place] COMPARISON: US KIDNEY/RENAL/BLADDER, September 17, 2014, 13:32. INDICATIONS : Renal failure. MEDICAL HISTORY : Gastroesophageal reflux disease. Hypercholesterolemia. Bladder cancer. CHF. Chemotherapy. Diabetic. Hypertension. PVC. SURGICAL HISTORY : CABG .Coronary artery stent. Total knee replacement, left. ENCOUNTER: Initial ACUITY: 1 day PAIN SCORE: 10/10 LOCATION: Bilateral flank MEASUREMENTS: RIGHT KIDNEY: 11.5 x 5.9 x 6.1 cm LEFT KIDNEY: 11.7 x 4.8 x 7.0 cm FINDINGS: RIGHT KIDNEY: Renal cortex is normal in thickness and echotexture. No hydronephrosis, stone, or mass. LEFT KIDNEY: Renal cortex is normal in thickness and echotexture. No hydronephrosis, stone, or mass. BLADDER: Within normal limits given the degree of distension. CONCLUSION: There are small right and left pleural effusions. There is no mass or hydronephrosis . Piter Ta MD FACR on July 08, 2016 at 16:10 Board Certified Radiologist. This report was verified electronically.
--- NOTE | 2016-07-08 19:01 | EC ---
Study Study Date:07/08/2016 STUDY CONCLUSIONS SUMMARY - Left ventricle: The cavity size was severely dilated. Wall thickness was normal. Systolic function was mildly reduced. The estimated ejection fraction was in the range of 45% to 50%. Wall motion was normal; there were no regional wall motion abnormalities. - Aortic valve: Valve area: 0.87cm^2(VTI). Valve area: 0.92cm^2 (Vmax). - Mitral valve: Mild to moderate regurgitation. - Right ventricle: The cavity size was moderately dilated. Wall thickness was normal. - Tricuspid valve: Moderate regurgitation. - Pulmonary arteries: Systolic pressure was moderately to severely increased. PA peak pressure: 73mm Hg (S). If LV function is below 40, please consider prescribing an ACEI or ARB or document rationale for non-use. PROCEDURE DATA STUDY STATUS: Elective. Procedure: Transthoracic echocardiography. Image quality was good. Scanning was performed from the parasternal, apical, and subcostal acoustic windows. Study completion: The patient tolerated the procedure well. Transthoracic echocardiography. M-mode, complete 2D, complete spectral Doppler, and color Doppler. Height: Height: 69in. Weight: Weight: 215.6lb. Body mass index: BMI: 31.9kg/m^2. Body surface area: BSA: 2.13m^2. Patient status: Inpatient. CARDIAC ANATOMY LEFT VENTRICLE: The cavity size was severely dilated. Wall thickness was normal. Systolic function was mildly reduced. The estimated ejection fraction was in the range of 45% to 50%. Wall motion was normal; there were no regional wall motion abnormalities. AORTIC VALVE: Trileaflet; normal thickness, mildly calcified leaflets. Doppler: Transvalvular velocity was within the normal range. There was no stenosis. No regurgitation. Valve area: 0.87cm^2(VTI). Indexed valve area: 0.41cm^2/m^2 (VTI). Valve area: 0.92cm^2 (Vmax). Indexed valve area: 0.43cm^2/m^2 (Vmax). Mean gradient: 8mm Hg (S). Peak gradient: 15mm Hg (S). AORTA: The aorta was mildly calcified. Aortic root: The aortic root was normal in size. MITRAL VALVE: Structurally normal valve. Doppler: Transvalvular velocity was within the normal range. There was no evidence for stenosis. Mild to moderate regurgitation. Peak gradient: 3mm Hg (D). LEFT ATRIUM: The atrium was normal in size. RIGHT VENTRICLE: The cavity size was moderately dilated. Wall thickness was normal. PULMONIC VALVE: Doppler: Transvalvular velocity was within the normal range. There was no evidence for stenosis. No regurgitation. TRICUSPID VALVE: Structurally normal valve. Doppler: Transvalvular velocity was within the normal range. Moderate regurgitation. PULMONARY ARTERY: The main pulmonary artery was normal-sized. Systolic pressure was moderately to severely increased. RIGHT ATRIUM: The atrium was normal in size. PERICARDIUM: There was no pericardial effusion. SYSTEMIC VEINS: Inferior vena cava: The vessel was normal in size. Patient weight: 215.6lb _Ejection fraction:_ 65-75% _Fractional shortening:_ 32% up to 5Kg 5-11.5Kg 11.6-22.9Kg 23-45Kg 45-57Kg Aortic Root 7-13 <17 13-22 17-27 17-27 LA diam 6-13 <23 24-38 33-47 37-40 RVID 10-17 7-15 7-15 7-18 8-17 LVIDd 12-22 <32 24-38 33-47 37-40 LVPW 2-4 3-6 5-7 6-8 7-8 IVS 2-4 3-6 5-7 6-8 7-8 BASIC MEASUREMENTS ADULT NORMAL Left ventricle LV internal dimension, ED, chordal *76.6 mm 43-52 level, PLAX LV internal dimension, ES, chordal *62.4 mm 23-38 level, PLAX Fractional shortening, chordal level, *19 % >29 PLAX LV posterior wall thickness, ED 8.6 mm IVS/LVPW ratio, ED 1.27 <1.3 Ventricular septum Septal thickness, ED 10.9 mm Aorta Root diameter, ED 33 mm Left atrium Anterior-posterior dimension 44 mm Anterior-posterior dimension index 2.07 cm/m^2 <2.2 DOPPLER MEASUREMENTS ADULT NORMAL Main pulmonary artery Pressure, S *73 mm Hg =30 Aortic valve Peak velocity, S 193 cm/s Mean velocity, S 135 cm/s VTI, S 48.4 cm Mean gradient, S 8 mm Hg Peak gradient, S 15 mm Hg Valve area, VTI 0.87 cm^2 Valve area index, VTI 0.41 cm^2/m^2 Valve area, Vmax 0.92 cm^2 Valve area index, Vmax 0.43 cm^2/m^2 Mitral valve Peak E-wave velocity 84.4 cm/s Peak A-wave velocity 34.6 cm/s Deceleration time *232 ms 150-230 Peak gradient, D 3 mm Hg Peak E/A ratio 2.4 Tricuspid valve Regurgitant peak velocity 403 cm/s Peak RV-RA gradient, S 65 mm Hg Maximal regurgitant velocity 403 cm/s Systemic veins Estimated CVP 10 mm Hg Right ventricle RV pressure, S *75 mm Hg <30 Pulmonic valve Peak velocity, S 69.9 cm/s LEGEND: Mean values are shown as u=mean value. Asterisk (*) siddiqui values outside specified normal range. Prepared and signed by Sara Bullock [id number]
[2016-07-08] MEDS: guaiFENesin E.R. 600 MG TAB PO SCH (21:38)
--- NOTE | 2016-07-08 23:29 | EKG ---
Date Performed: 07/07/2016 Time Performed: 15:33:23 PTAGE: 81 years EKG: SINUS BRADYCARDIA WITH FIRST DEGREE AV BLOCK LOW QRS VOLTAGE IN EXTREMITY LEADS MODERATE IN TRAVENTRICULAR CONDUCTION DELAY ABNORMAL QRS-T ANGLE PROLONGED QT INTERVAL ABNORMAL ECG INTERPRETATIO N BASED ON A DEFAULT AGE OF 40 YEARS PREVIOUS TRACING : 04/21/2015 00.46 DOCTOR: Sanjana Chu Interpretating Date/Time 07/08/2016 23:27:29
[2016-07-09] VITALS (9 sets, daily range): BP systolic 125–151; BP diastolic 60–77; PULSE 68–86; RESP 18–19; TEMP 96.5–98.1; O2SAT 95–99
[2016-07-09] MEDS: RESP: ALBUTEROL 2.5 MG/IPRATROPIUM 0.5 MG NEB (SCH) NEB ×6 (02:43→20:03)
[2016-07-09] MEDS: HEPARIN SODIUM - SQ 10,000 UNITS/ML VIAL SQ SCH ×3 (06:10→22:26)
[2016-07-09] MEDS: INSULIN NovoLIN REGULAR SUPPLEMENTAL SCALE SQ SCH ×4 (06:28→22:20)
[2016-07-09] MEDS: SODIUM CHLORIDE 0.9% FLUSH 5 ML FLUSH FLUSH SCH ×2 (09:00→21:00)
[2016-07-09] MEDS: SERTRALINE HCL 50 MG TAB PO SCH (09:11)
[2016-07-09] MEDS: ASPIRIN 325 MG TAB PO SCH (09:11)
[2016-07-09] MEDS: guaiFENesin E.R. 600 MG TAB PO SCH ×2 (09:11→22:26)
[2016-07-09] MEDS: LACTOBACILLUS ACIDOPHILUS TAB PO SCH ×3 (09:11→17:19)
[2016-07-09] MEDS: PANTOPRAZOLE SOD 40 MG DELAYED RELEASE TAB PO SCH (09:12)
[2016-07-09] MEDS: SODIUM CHLOR 0.9% 1000 ML INJ 1,000 ML IV SCH (09:12)
[2016-07-09] MEDS: CEFEPIME INJ 2,000 MG in SODIUM CHLORIDE 0.9% INJ 100 ML IV SCH (10:12)
--- NOTE | 2016-07-09 13:03 | HHI.PR ---
Subjective Remarks This is a pleasant 81 y/o male who has Renal Injury, UTI and Bradycardia, came with weakness, received IV fluids, Hypertension, DM II, CAD status post CABG, CHF, CVA, Bladder cancer, Anemia, Peripheral neuropathy, CKD III, Osteoporosis, Depression, Gout, patient stable admitted today discussed with Nurse Miss Stokes, Patient and his Mrs. Fab Madden in the room, she agree her will need rehabilitation at discharge. continue saying he is not feeling well weakness. Objective Vital Signs Date Time Temp Pulse Resp B/P Pulse Ox O2 Delivery O2 Flow Rate FiO2 07/09/16 07:36 98 Nasal Cannula 3.00 07/09/16 07:24 96.5 68 18 151/61 95 07/09/16 04:39 86 18 129/74 96 07/09/16 00:45 78 18 125/77 96 07/08/16 20:29 96 Nasal Cannula 1.00 07/08/16 20:00 54 07/08/16 19:24 52 18 130/60 97 07/08/16 17:13 18 07/08/16 16:52 97.0 68 20 127/58 97 I/O 07/08/16 07/08/16 07/08/16 07/09/16 07/09/16 07/09/16 07:00 15:00 23:00 07:00 15:00 23:00 Intake Total 960 ml Output Total 800 ml 2 ml Balance -800 ml 958 ml Intake Oral 360 ml IV Total 600 ml Output Urine Total 800 ml Stool Total 2 ml # Voids 3 Result Diagram: 07/08/16 0652 07/08/16 0652 Imaging Last Impressions Renal Ultrasound 07/08/16 0000 Signed Impressions: Service Date/Time: Friday, July 08, 2016 15:25 - CONCLUSION: There are small right and left pleural effusions. There is no mass or hydronephrosis. Piter Ta MD FACR Lower Extremity Ultrasound 07/08/16 0000 Signed Impressions: Service Date/Time: Friday, July 08, 2016 05:49 - CONCLUSION: Normal examination. Larry Mccullough MD Chest X-Ray 07/07/16 9713 Signed Impressions: Service Date/Time: July 18:00 - CONCLUSION: Volume overload and CHF. Sheryl Garzon MD Procedures No procedures performed. Other Results Laboratory Tests Test 07/07/16 07/07/16 07/08/16 16:00 16:30 06:52 Prothrombin Time 13.1 SEC Prothromb Time International 1.2 RATIO Ratio Activated Partial 28.7 SEC Thromboplast Time Magnesium Level 2.5 MG/DL Total Bilirubin 0.2 MG/DL Aspartate Amino Transf 18 U/L (AST/SGOT) Alanine Aminotransferase 15 U/L (ALT/SGPT) Alkaline Phosphatase 79 U/L Total Creatine Kinase 130 U/L Creatine Kinase MB 3.8 NG/ML Troponin I 0.04 NG/ML Total Protein 6.8 GM/DL Albumin 3.2 GM/DL Lipase 78 U/L Urine Color YELLOW Urine Turbidity CLOUDY Urine pH 5.0 Urine Specific [place] 1.019 Urine Protein 30 mg/dL Urine Glucose (UA) NEG mg/dL Urine Ketones NEG mg/dL Urine Occult Blood SMALL Urine Nitrite NEG Urine Bilirubin NEG Urine Urobilinogen LESS THAN 2.0 MG/DL Urine Leukocyte Esterase LARGE Urine RBC 20 /hpf Urine WBC /hpf Urine Bacteria RARE /hpf Urine Hyaline Casts 17 /lpf Urine Yeast (Budding) FEW Microscopic Urinalysis Comment CATH-CULTURE IND Lactic Acid Level 1.4 mmol/L White Blood Count 8.8 TH/MM3 Red Blood Count 3.07 MIL/MM3 Hemoglobin 8.8 GM/DL Hematocrit 27.6 % Mean Corpuscular Volume 89.8 FL Mean Corpuscular Hemoglobin 28.6 PG Mean Corpuscular Hemoglobin 31.8 % Concent Red Cell Distribution Width 17.1 % Platelet Count 159 TH/MM3 Mean Platelet Volume 10.3 FL Neutrophils (%) (Auto) 52.9 % Lymphocytes (%) (Auto) 36.5 % Monocytes (%) (Auto) 6.1 % Eosinophils (%) (Auto) 4.0 % Basophils (%) (Auto) 0.5 % Neutrophils # (Auto) 4.6 TH/MM3 Lymphocytes # (Auto) 3.2 TH/MM3 Monocytes # (Auto) 0.5 TH/MM3 Eosinophils # (Auto) 0.3 TH/MM3 Basophils # (Auto) 0.0 TH/MM3 CBC Comment DIFF FINAL Differential Comment Sodium Level 128 MEQ/L Potassium Level 5.3 MEQ/L Chloride Level 91 MEQ/L Carbon Dioxide Level 26.8 MEQ/L Anion Gap 10 MEQ/L Blood Urea Nitrogen 79 MG/DL Creatinine 4.78 MG/DL Estimat Glomerular Filtration 12 ML/MIN Rate Random Glucose 90 MG/DL Calcium Level 8.0 MG/DL Objective Remarks GENERAL: This is elderly gentleman, not in acute distress, however looks chronically ill. SKIN: Superficial ecchymosis HEAD: Atraumatic. Normocephalic. No temporal or scalp tenderness. EYES: . No scleral icterus. No injection or drainage. ENT: Nose without bleeding, purulent drainage or septal hematoma. . Airway patent. NECK: Trachea midline. No JVD Supple, nontender, no meningeal signs. CARDIOVASCULAR: Regular rate and rhythm without murmurs, gallops, or rubs. RESPIRATORY: Bilateral expiratory wheezing mild. GASTROINTESTINAL: Abdomen soft, non-tender, nondistended. No guarding. : Patient has Rosales catheter. asked for removal. MUSCULOSKELETAL: Extremities without clubbing, cyanosis, or edema. Right lower extremity much bigger than the left. Bilateral pitting edema about 2+. NEUROLOGICAL: Awake and alert.Motor and sensory grossly within normal limits. Normal speech. Medications and IVs Current Medications Medications (Trade) Dose Ordered Sig/Bucky Route Start Time Stop Time Status Last Admin (NS Flush) 2 ml UNSCH PRN FLUSH 07/07/16 20:15 (NS Flush) 2 ml BID FLUSH 07/07/16 21:00 07/08/16 09:17 (Heparin Inj) 5,000 units Q8H SQ 07/08/16 06:00 07/09/16 06:10 (Narcan Inj) 0.4 mg UNSCH PRN IV 07/07/16 20:15 (Aspirin) 325 mg DAILY PO 07/08/16 09:00 07/09/16 09:11 (Levsin) 0.125 mg Q4H PRN PO 07/08/16 08:15 (Tears Naturale Opth Soln) 1 drop TID PRN EACH EYE 07/08/16 08:15 (Zoloft) 50 mg DAILY PO 07/08/16 09:00 07/09/16 09:11 (D50w (Vial) Inj) 25 ml UNSCH PRN IV PUSH 07/08/16 08:15 (Glucagon Inj) 1 mg UNSCH PRN OTHER 07/08/16 08:15 (Protonix) 40 mg DAILY PO 07/08/16 09:00 07/09/16 09:12 Lactobacillus Acidophilus 1 tab 1 tab TID PO 07/08/16 09:00 07/09/16 09:11 (Maxipime Inj/NS Inj) 100 ml @ 200 mls/hr Q24H IV 07/09/16 10:00 07/09/16 10:12 (Tylenol) 650 mg Q4H PRN PO 07/08/16 13:00 Acetaminophen/ Codeine Phosphate 1 tab 1 tab Q4H PRN PO 07/08/16 13:00 07/08/16 21:38 (NS 1000 ml Inj) 1,000 ml @ 50 mls/hr Q20H IV 07/08/16 14:00 07/09/16 09:12 (Mucinex Er) 600 mg BID PO 07/08/16 21:00 07/09/16 09:11 A/P Assessment and Plan 1. Generalized Weakness secondary to multiple admissions to the Hospital, also followed at [facility], recurrent UTI, chronic deconditioning, will need Coil Machine Supervisor, OT/PT for discharge to Rehab. 2. UTI on Maxipime. 3. Electrolyte derangement Improving and Nephrology specialist following. 4. Bradycardia stable. 5. Acute Renal Injury on chronic Renal injury Nephrology specialist following. 6. Bladder cancer 7. Hypertension controlled. 8. CVA by history 9. Depression stable 10. Anemia on Epogen by Nephrology specialist. 11. Osteoporosis Hydration given in ER, Vancomycin, Zosyn and Rocephin, now on Cefepime.Urine culture Follow urine culture DVT prophylaxison heparin. GI prophylaxis on pantoprazole. Discussed with Patient and Nurse Miss Leos meggan. Doppler US of LE done- negative for DVT Discharge Planning Coil Machine Supervisor for discharge Satnam Najera MD Jul 09, 2016 13:02
[2016-07-09] MEDS: ACETAMINOPHEN 325 MG TAB PO PRN (17:20)
[2016-07-09] MEDS ORDERED: TOLVAPTAN 15 MG TAB PO ONE (19:00)
--- NOTE | 2016-07-09 19:02 | HHI.NPPN ---
Subjective History of Present Illness 81 year old with CKD 4, DM,HTN,CHF Review of Systems General Constitutional: Fatigue Objective Data Data 07/08/16 07/09/16 19:00 07:00 Intake Total 960 ml Output Total 800 ml 2 ml Balance -800 ml 958 ml Intake Oral 360 ml IV Total 600 ml Output Urine Total 800 ml Stool Total 2 ml # Voids 3 Vital Signs Date Time Temp Pulse Resp B/P Pulse Ox O2 Delivery O2 Flow Rate FiO2 07/09/16 18:22 20 07/09/16 15:10 69 138/63 07/09/16 07:36 98 Nasal Cannula 3.00 07/09/16 07:24 96.5 68 18 151/61 95 07/09/16 04:39 86 18 129/74 96 07/09/16 00:45 78 18 125/77 96 07/08/16 20:29 96 Nasal Cannula 1.00 07/08/16 20:00 54 07/08/16 19:24 52 18 130/60 97 -: 07/08/16 0652 07/08/16 0652 Physical Exam General Appearance: Well Developed, Well Nourished Neck Neck Exam: Neck Supple Pulmonary Resp Exam: Decreased Bases Cardiology CV Exam: Regular Gastrointestinal/Abdomen GI Exam: Soft, Non-Tender, Bowel Sounds Present Integumentary Skin Exam: Clear Assessment/Plan Problem List: (1) ZAN (acute kidney injury) Plan: on CKD, unknown baseline in 2014 creatinine 1.72/GFR 39 in 2015 cr 2.96, GFR 21 cr today 4.78 k 5.3 chf Ef 45%, Severe Pulmonary Hypertension Na 128 Samsca 15 mg ordered need to correct sodium follows with Dr. Valentin (2) Urinary tract infection Plan: continue antibiotics, culture report candidal need Fluconazole (3) DM (diabetes mellitus) Plan: has not been requiring insulin, monitor (4) HTN (hypertension) Plan: he has been relatively hypotensive lately, hold HTN medications (5) CHF (congestive heart failure) Plan: monitor fluid volume status EF 45% sever Pulmonary hypertension (6) Hyponatremia Plan: Samsca 15 mg ordered Marnie Gutierrez MD Jul 09, 2016 19:02
[2016-07-10] VITALS (7 sets, daily range): BP systolic 130–168; BP diastolic 58–84; PULSE 82–101; RESP 18–20; TEMP 97.7; O2SAT 94–99
[2016-07-10] MEDS: ACETAMINOPHEN 325 MG TAB PO PRN (02:42)
[2016-07-10 05:31] LABS: BICARBONATE 23.5 MEQ/L (21.0-32.0); POTASSIUM 4.4 MEQ/L (3.5-5.1)
[2016-07-10] MEDS: SODIUM CHLOR 0.9% 1000 ML INJ 1,000 ML IV SCH ×2 (06:00→09:45)
[2016-07-10] MEDS: INSULIN NovoLIN REGULAR SUPPLEMENTAL SCALE SQ SCH ×4 (06:12→21:00)
[2016-07-10] MEDS: HEPARIN SODIUM - SQ 10,000 UNITS/ML VIAL SQ SCH ×3 (06:38→21:04)
[2016-07-10] MEDS: RESP: ALBUTEROL 2.5 MG/IPRATROPIUM 0.5 MG NEB (SCH) NEB ×3 (07:07→20:55)
--- NOTE | 2016-07-10 08:15 | HHI.PR ---
Subjective Remarks This is a pleasant 81 y/o male who has Acute Renal Injury, UTI and Bradycardia, came with weakness, received IV fluids, Hypertension, DM II, CAD status post CABG, CHF, CVA, Bladder cancer, Anemia, Peripheral neuropathy, CKD III, Osteoporosis, Depression, Gout, Patient stable improving Renal condition improving Creatinine 3.04 from 5.07 on admission, his Urine Culture growing Tata Glabrata but because the patient is debilitated and with chronic condition will start treatment renally adjusted to Fluconazole 100 mg daily will continue Physical Therapy. Objective Vital Signs Date Time Temp Pulse Resp B/P Pulse Ox O2 Delivery O2 Flow Rate FiO2 07/10/16 07:07 99 Nasal Cannula 2.00 07/09/16 23:53 98.1 82 18 130/61 97 07/09/16 20:48 98.1 77 19 132/60 98 07/09/16 20:03 95 Nasal Cannula 3.00 07/09/16 20:00 72 07/09/16 20:00 99 07/09/16 18:22 20 07/09/16 15:10 69 138/63 I/O 07/09/16 07/09/16 07/09/16 07/10/16 07/10/16 07/10/16 07:00 15:00 23:00 07:00 15:00 23:00 Intake Total 960 ml 810 ml Output Total 2 ml Balance 958 ml 810 ml Intake Oral 360 ml 360 ml IV Total 600 ml 450 ml Stool Total 2 ml # Voids 3 6 Result Diagram: 07/08/16 0652 07/10/16 0429 Imaging Last Impressions Renal Ultrasound 07/08/16 0000 Signed Impressions: Service Date/Time: Friday, July 08, 2016 15:25 - CONCLUSION: There are small right and left pleural effusions. There is no mass or hydronephrosis. Piter Ta MD FACR Lower Extremity Ultrasound 07/08/16 0000 Signed Impressions: Service Date/Time: Friday, July 08, 2016 05:49 - CONCLUSION: Normal examination. Larry Mccullough MD Chest X-Ray 07/07/16 [id number] Signed Impressions: Service Date/Time: July 18:00 - CONCLUSION: Volume overload and CHF. K. Jan Garzon MD Procedures No procedures performed. Other Results Last Impressions Renal Ultrasound 07/08/16 0000 Signed Impressions: Service Date/Time: Friday, July 08, 2016 15:25 - CONCLUSION: There are small right and left pleural effusions. There is no mass or hydronephrosis. Piter Ta MD FACR Lower Extremity Ultrasound 07/08/16 0000 Signed Impressions: Service Date/Time: Friday, July 08, 2016 05:49 - CONCLUSION: Normal examination. Larry Mccullough MD Chest X-Ray 07/07/16 1743 Signed Impressions: Service Date/Time: July 18:00 - CONCLUSION: Volume overload and CHF. K. Jan Garzon MD Objective Remarks GENERAL: This is elderly gentleman, not in acute distress, however looks chronically ill. SKIN: Superficial ecchymosis HEAD: Atraumatic. Normocephalic. No temporal or scalp tenderness. EYES: . No scleral icterus. No injection or drainage. ENT: Nose without bleeding, purulent drainage or septal hematoma. . Airway patent. NECK: Trachea midline. No JVD Supple, nontender, no meningeal signs. CARDIOVASCULAR: Regular rate and rhythm without murmurs, gallops, or rubs. RESPIRATORY: Decreased breath sounds bilateral and no wheezing no crackles. GASTROINTESTINAL: Abdomen soft, non-tender, nondistended. No guarding. : Patient has Rosales catheter. asked for removal. MUSCULOSKELETAL: Extremities without clubbing, cyanosis, or edema. Right lower extremity much bigger than the left. Bilateral pitting edema about 2+. NEUROLOGICAL: Awake and alert.Motor and sensory grossly within normal limits. Normal speech. Medications and IVs Current Medications Medications (Trade) Dose Ordered Sig/Bucky Route Start Time Stop Time Status Last Admin (NS Flush) 2 ml UNSCH PRN FLUSH 07/07/16 20:15 (NS Flush) 2 ml BID FLUSH 07/07/16 21:00 07/08/16 09:17 (Heparin Inj) 5,000 units Q8H SQ 07/08/16 06:00 07/10/16 06:38 (Narcan Inj) 0.4 mg UNSCH PRN IV 07/07/16 20:15 (Aspirin) 325 mg DAILY PO 07/08/16 09:00 07/09/16 09:11 (Levsin) 0.125 mg Q4H PRN PO 07/08/16 08:15 (Tears Naturale Opth Soln) 1 drop TID PRN EACH EYE 07/08/16 08:15 (Zoloft) 50 mg DAILY PO 07/08/16 09:00 07/09/16 09:11 (D50w (Vial) Inj) 25 ml UNSCH PRN IV PUSH 07/08/16 08:15 (Glucagon Inj) 1 mg UNSCH PRN OTHER 07/08/16 08:15 (Protonix) 40 mg DAILY PO 07/08/16 09:00 07/09/16 09:12 Lactobacillus Acidophilus 1 tab 1 tab TID PO 07/08/16 09:00 07/09/16 17:19 (Maxipime Inj/NS Inj) 100 ml @ 200 mls/hr Q24H IV 07/09/16 10:00 07/09/16 10:12 (Tylenol) 650 mg Q4H PRN PO 07/08/16 13:00 07/10/16 02:42 Acetaminophen/ Codeine Phosphate 1 tab 1 tab Q4H PRN PO 07/08/16 13:00 07/08/16 21:38 (NS 1000 ml Inj) 1,000 ml @ 50 mls/hr Q20H IV 07/08/16 14:00 07/09/16 09:12 (Mucinex Er) 600 mg BID PO 07/08/16 21:00 07/09/16 22:26 (Diflucan) 100 mg DAILY PO 07/10/16 09:00 A/P Problem List: (1) Weakness ICD Code: R53.1 (2) Acute on chronic kidney disease, stage 3 ICD Code: N18.3 (3) UTI (urinary tract infection) ICD Code: N39.0 (4) CHF (congestive heart failure) ICD Code: I50.9 (5) HTN (hypertension) ICD Code: I10 Assessment and Plan 1. Generalized Weakness secondary to multiple admissions to the Hospital, also followed at [facility], recurrent UTI, chronic deconditioning, will need Supervisor Prepress, OT/PT for discharge to Rehab. 2. UTI on Maxipime continue present care and also today Urine Culture with Tata Glabrata he has chronic debilitating disease I will start treatment with Fluconazole renally adjusted. to 100 mg by mouth daily for 14 days. 3. Electrolyte derangement Improved nephrology specialist following. 4. Bradycardia stable. 5. Acute Renal Injury on chronic Renal injury III Nephrology specialist Following. 6. Bladder cancer 7. Hypertension controlled. 8. CVA by history 9. Depression stable 10. Anemia on Epogen by Nephrology specialist. 11. Osteoporosis. Hydration given in ER, Vancomycin, Zosyn and Rocephin, now on Cefepime and Fluconazole DVT prophylaxison heparin. GI prophylaxis on pantoprazole. Discussed with Patient and Nurse appreciated. Doppler US of LE done- negative for DVT Discharge Planning Supervisor Prepress for discharge once cleared by Nephrology specialist. Problem Qualifiers (1) UTI (urinary tract infection): Qualified Code: N30.01 - Acute cystitis with hematuria Satnam Najera MD Jul 10, 2016 08:15 Satnam Najera MD Jul 10, 2016 08:15
[2016-07-10] MEDS ORDERED: FLUCONAZOLE 100 MG TAB PO SCH (09:00)
[2016-07-10] MEDS: CEFEPIME INJ 2,000 MG in SODIUM CHLORIDE 0.9% INJ 100 ML IV SCH (09:45)
[2016-07-10] MEDS: LACTOBACILLUS ACIDOPHILUS TAB PO SCH ×3 (09:45→16:50)
[2016-07-10] MEDS: SODIUM CHLORIDE 0.9% FLUSH 5 ML FLUSH FLUSH SCH ×2 (09:45→21:03)
[2016-07-10] MEDS: ASPIRIN 325 MG TAB PO SCH (09:46)
[2016-07-10] MEDS: FLUCONAZOLE 100 MG TAB PO SCH (09:46)
[2016-07-10] MEDS: PANTOPRAZOLE SOD 40 MG DELAYED RELEASE TAB PO SCH (09:46)
[2016-07-10] MEDS: SERTRALINE HCL 50 MG TAB PO SCH (09:46)
[2016-07-10] MEDS: guaiFENesin E.R. 600 MG TAB PO SCH ×2 (09:46→21:04)
[2016-07-10] MEDS: ACETAMINOPHEN/CODEINE 300 MG/30 MG TAB PO PRN ×2 (15:59→21:04)
--- NOTE | 2016-07-10 17:24 | HHI.NPPN ---
Subjective History of Present Illness 81 year old with CKD 4, DM,HTN,CHF Additional Remarks c/o SOB Review of Systems General Constitutional: Fatigue Objective Data Data 07/09/16 07/10/16 19:00 07:00 Intake Total 810 ml Balance 810 ml Intake Oral 360 ml IV Total 450 ml # Voids 6 Vital Signs Date Time Temp Pulse Resp B/P Pulse Ox O2 Delivery O2 Flow Rate FiO2 07/10/16 17:05 16 07/10/16 16:09 96 18 130/60 96 07/10/16 12:25 82 07/10/16 11:50 83 18 157/58 95 07/10/16 07:07 99 Nasal Cannula 2.00 07/09/16 23:53 98.1 82 18 130/61 97 07/09/16 20:48 98.1 77 19 132/60 98 07/09/16 20:03 95 Nasal Cannula 3.00 07/09/16 20:00 72 07/09/16 20:00 99 07/09/16 18:22 20 -: 07/08/16 0652 07/10/16 0429 Physical Exam General Appearance: Well Developed, Well Nourished Neck Neck Exam: Neck Supple Pulmonary Resp Exam: Decreased Bases Cardiology CV Exam: Regular Gastrointestinal/Abdomen GI Exam: Soft, Non-Tender, Bowel Sounds Present Integumentary Skin Exam: Clear Assessment/Plan Problem List: (1) ZAN (acute kidney injury) Plan: on CKD, unknown baseline in 2014 creatinine 1.72/GFR 39 in 2015 cr 2.96, GFR 21 cr today 3.04 chf Ef 45%, Severe Pulmonary Hypertension Na 134 Samsca 15 mg was given x 1 IVFstop give Lasix 40 mg as SOB need Rosales back as UOP not documented follows with Dr. Valentin (2) Urinary tract infection Plan: continue antibiotics, culture report candidal need Fluconazole (3) DM (diabetes mellitus) Plan: has not been requiring insulin, monitor (4) HTN (hypertension) Plan: he has been relatively hypotensive lately, hold HTN medications (5) CHF (congestive heart failure) Plan: monitor fluid volume status EF 45% sever Pulmonary hypertension (6) Hyponatremia Plan: Samsca 15 mg ordered Marnie Gutierrez MD Jul 10, 2016 17:24
[2016-07-10] MEDS ORDERED: FUROSEMIDE 40 MG/4 ML VIAL IV PUSH ONE (18:30)
[2016-07-11] VITALS (9 sets, daily range): BP systolic 94–178; BP diastolic 50–81; PULSE 80–98; RESP 18–24; TEMP 97.4–98.7; O2SAT 96–99
[2016-07-11] MEDS: INSULIN NovoLIN REGULAR SUPPLEMENTAL SCALE SQ SCH ×4 (05:55→20:50)
[2016-07-11] MEDS: HEPARIN SODIUM - SQ 10,000 UNITS/ML VIAL SQ SCH ×3 (05:57→20:49)
[2016-07-11] MEDS: RESP: ALBUTEROL 2.5 MG/IPRATROPIUM 0.5 MG NEB (PRN) NEB (06:08)
[2016-07-11] MEDS: RESP: ALBUTEROL 2.5 MG/IPRATROPIUM 0.5 MG NEB (SCH) NEB ×3 (08:13→19:48)
--- NOTE | 2016-07-11 08:17 | HHI.PR ---
Subjective Remarks This is a pleasant 81 y/o male who has Acute Renal Injury, UTI and Bradycardia, came with weakness, received IV fluids, Hypertension, DM II, CAD status post CABG, CHF, CVA, Bladder cancer, Anemia, Peripheral neuropathy, CKD III, Osteoporosis, Depression, Gout, Patient stable improving Renal condition improving Creatinine 3.04 from 5.07 on admission, his Urine Culture growing Tata Glabrata but because the patient is debilitated and with chronic condition will start treatment renally adjusted to Fluconazole 100 mg daily will continue Physical Therapy. Patient stable seen in his bedroom, discussed with nurse Brown no Nausea, vomit or diarrhea, continue with Shortness of breath but clear lungs, chronic Respiratory insufficiency No Nausea, vomit or diarrhea. Objective Vital Signs Date Time Temp Pulse Resp B/P Pulse Ox O2 Delivery O2 Flow Rate FiO2 07/11/16 05:06 98.1 83 20 94/50 97 07/11/16 00:53 98.7 88 18 104/62 97 07/10/16 21:00 Nasal Cannula 3.00 07/10/16 20:51 94 Nasal Cannula 3.00 07/10/16 20:24 95 07/10/16 20:00 97.7 101 20 168/84 94 07/10/16 17:05 16 07/10/16 16:09 96 18 130/60 96 07/10/16 12:25 82 07/10/16 11:50 83 18 157/58 95 I/O 07/10/16 07/10/16 07/10/16 07/11/16 07/11/16 07/11/16 07:00 15:00 23:00 07:00 15:00 23:00 Intake Total 810 ml Balance 810 ml Intake Oral 360 ml IV Total 450 ml # Voids 6 2 1 # Bowel Movements 0 Result Diagram: 07/08/16 0652 07/10/16 0429 Imaging Last Impressions Renal Ultrasound 07/08/16 0000 Signed Impressions: Service Date/Time: Friday, July 08, 2016 15:25 - CONCLUSION: There are small right and left pleural effusions. There is no mass or hydronephrosis. Piter Ta MD FACR Lower Extremity Ultrasound 07/08/16 0000 Signed Impressions: Service Date/Time: Friday, July 08, 2016 05:49 - CONCLUSION: Normal examination. Larry Mccullough MD Chest X-Ray 07/07/16 [id number] Signed Impressions: Service Date/Time: July 18:00 - CONCLUSION: Volume overload and CHF. K. Jan Garzon MD Procedures No procedures performed. Other Results Current Medications Medications (Trade) Dose Ordered Sig/Bucky Route Start Time Stop Time Status Last Admin (NS Flush) 2 ml UNSCH PRN FLUSH 07/07/16 20:15 07/10/16 09:45 (NS Flush) 2 ml BID FLUSH 07/07/16 21:00 07/10/16 21:03 (Heparin Inj) 5,000 units Q8H SQ 07/08/16 06:00 07/11/16 05:57 (Narcan Inj) 0.4 mg UNSCH PRN IV 07/07/16 20:15 (Aspirin) 325 mg DAILY PO 07/08/16 09:00 07/10/16 09:46 (Levsin) 0.125 mg Q4H PRN PO 07/08/16 08:15 (Tears Naturale Opth Soln) 1 drop TID PRN EACH EYE 07/08/16 08:15 (Zoloft) 50 mg DAILY PO 07/08/16 09:00 07/10/16 09:46 (D50w (Vial) Inj) 25 ml UNSCH PRN IV PUSH 07/08/16 08:15 (Glucagon Inj) 1 mg UNSCH PRN OTHER 07/08/16 08:15 (Protonix) 40 mg DAILY PO 07/08/16 09:00 07/10/16 09:46 Lactobacillus Acidophilus 1 tab 1 tab TID PO 07/08/16 09:00 07/10/16 16:50 (Maxipime Inj/NS Inj) 100 ml @ 200 mls/hr Q24H IV 07/09/16 10:00 07/10/16 09:45 (Tylenol) 650 mg Q4H PRN PO 07/08/16 13:00 07/10/16 02:42 (Tylenol-Codeine #3) 1 tab Q4H PRN PO 07/08/16 13:00 07/10/16 21:04 (Mucinex Er) 600 mg BID PO 07/08/16 21:00 07/10/16 21:04 (Diflucan) 100 mg DAILY PO 07/10/16 09:00 07/10/16 09:46 Objective Remarks GENERAL: This is elderly gentleman, not in acute distress, however looks chronically ill. SKIN: Superficial ecchymosis HEAD: Atraumatic. Normocephalic. No temporal or scalp tenderness. EYES: . No scleral icterus. No injection or drainage. ENT: Nose without bleeding, purulent drainage or septal hematoma. . Airway patent. NECK: Trachea midline. No JVD Supple, nontender, no meningeal signs. CARDIOVASCULAR: Regular rate and rhythm without murmurs, gallops, or rubs. RESPIRATORY: Decreased breath sounds bilateral and no wheezing no crackles. GASTROINTESTINAL: Abdomen soft, non-tender, nondistended. No guarding. : Patient has Rosales catheter. asked for removal. MUSCULOSKELETAL: Extremities without clubbing, cyanosis, or edema. Right lower extremity much bigger than the left. Bilateral pitting edema about 2+. NEUROLOGICAL: Awake and alert.Motor and sensory grossly within normal limits. Normal speech. Medications and IVs Current Medications Medications (Trade) Dose Ordered Sig/Bucky Route Start Time Stop Time Status Last Admin (NS Flush) 2 ml UNSCH PRN FLUSH 07/07/16 20:15 07/10/16 09:45 (NS Flush) 2 ml BID FLUSH 07/07/16 21:00 07/10/16 21:03 (Heparin Inj) 5,000 units Q8H SQ 07/08/16 06:00 07/11/16 05:57 (Narcan Inj) 0.4 mg UNSCH PRN IV 07/07/16 20:15 (Aspirin) 325 mg DAILY PO 07/08/16 09:00 07/10/16 09:46 (Levsin) 0.125 mg Q4H PRN PO 07/08/16 08:15 (Tears Naturale Opth Soln) 1 drop TID PRN EACH EYE 07/08/16 08:15 (Zoloft) 50 mg DAILY PO 07/08/16 09:00 07/10/16 09:46 (D50w (Vial) Inj) 25 ml UNSCH PRN IV PUSH 07/08/16 08:15 (Glucagon Inj) 1 mg UNSCH PRN OTHER 07/08/16 08:15 (Protonix) 40 mg DAILY PO 07/08/16 09:00 07/10/16 09:46 Lactobacillus Acidophilus 1 tab 1 tab TID PO 07/08/16 09:00 07/10/16 16:50 (Maxipime Inj/NS Inj) 100 ml @ 200 mls/hr Q24H IV 07/09/16 10:00 07/10/16 09:45 (Tylenol) 650 mg Q4H PRN PO 07/08/16 13:00 07/10/16 02:42 (Tylenol-Codeine #3) 1 tab Q4H PRN PO 07/08/16 13:00 07/10/16 21:04 (Mucinex Er) 600 mg BID PO 07/08/16 21:00 07/10/16 21:04 (Diflucan) 100 mg DAILY PO 07/10/16 09:00 07/10/16 09:46 A/P Problem List: (1) Weakness ICD Code: R53.1 (2) Acute on chronic kidney disease, stage 3 ICD Code: N18.3 (3) UTI (urinary tract infection) ICD Code: N39.0 (4) CHF (congestive heart failure) ICD Code: I50.9 (5) HTN (hypertension) ICD Code: I10 Assessment and Plan 1. Generalized Weakness secondary to multiple admissions to the Hospital, [facility], recurrent UTI, chronic deconditioning, will need Product Manager Medical Device, OT/PT for discharge to Rehab. 2. UTI on Maxipime continue present care and also today Urine Culture with Tata Glabrata he has chronic debilitating disease I will start treatment with Fluconazole renally adjusted. to 100 mg by mouth daily for 14 days. 3. Electrolyte derangement Improved nephrology specialist following. 4. Bradycardia stable. 5. Acute Kidney Injury due to Sepsis and Urinary Tract infection, the patient has Poor renal function, followed by Nephrology specialist, followed by Doctor Valentin as outpatient, recommended to continue Lasix 40 mg BID, He has Urinary retention and Rosales cath is on. 6. Bladder cancer 7. Hypertension controlled. 8. CVA by history 9. Depression stable 10. Anemia on Epogen by Nephrology specialist. 11. Osteoporosis. 12. CHF with mild Exacerbation sever Pulmonary hypertension, as Chronic Combines Systolic and Diastolic Heart failure, Systolic function is mildly reduced with EF 45-50%, Mild to Moderate Mitral regurgitation Moderate Tricuspid regurgitation, Pulmonary artery with Moderate to Severe Pulmonary Hypertension. 13. Hyponatremia correcting by Nephrology specialist recommended Samsca x 1 14. Urinary Retention related to Urethral stricture formation which is now been dilated, by Urology specialist recommended to leave Rosales cath indwelling for at least one week, follow with his primary Urology specialist Doctor Pablo by Doctor Jeison Tai. DVT prophylaxison heparin. GI prophylaxis on pantoprazole. Discussed with Patient and Nurse appreciated. Doppler US of LE done- negative for DVT Discharge Planning Product Manager Medical Device for discharge once cleared by Nephrology specialist. Problem Qualifiers (1) UTI (urinary tract infection): Qualified Code: N30.01 - Acute cystitis with hematuria Satnam Najera MD Jul 11, 2016 08:17
[2016-07-11] MEDS: SODIUM CHLORIDE 0.9% FLUSH 5 ML FLUSH FLUSH SCH ×2 (09:00→20:48)
[2016-07-11] MEDS: PANTOPRAZOLE SOD 40 MG DELAYED RELEASE TAB PO SCH (09:28)
[2016-07-11] MEDS: SERTRALINE HCL 50 MG TAB PO SCH (09:28)
[2016-07-11] MEDS: FLUCONAZOLE 100 MG TAB PO SCH (09:28)
[2016-07-11] MEDS: LACTOBACILLUS ACIDOPHILUS TAB PO SCH ×3 (09:28→16:59)
[2016-07-11] MEDS: ASPIRIN 325 MG TAB PO SCH (09:28)
[2016-07-11] MEDS: guaiFENesin E.R. 600 MG TAB PO SCH ×2 (09:28→20:47)
[2016-07-11] MEDS: CEFEPIME INJ 2,000 MG in SODIUM CHLORIDE 0.9% INJ 100 ML IV SCH (09:32)
[2016-07-11] MEDS ORDERED: FUROSEMIDE 40 MG/4 ML VIAL IV PUSH SCH (10:30)
--- NOTE | 2016-07-11 12:25 | HHI.NPPN ---
Subjective Complaints: Obesity, Shortness of Breath General Problems: Anemia Renal Failure: Stage IV History of Present Illness 81 year old with CKD 4, DM,HTN,CHF Interval History Renal labs not drawn. He is on oxygen. Stating dysuria has improved but requesting sosa. (Kiya Drew) Review of Systems General Constitutional: Fatigue (Kiya Drew) Respiratory Lungs: SOB (Kiya Drew) Objective Data Data 07/10/16 07/11/16 19:00 07:00 # Voids 2 1 # Bowel Movements 0 Vital Signs Date Time Temp Pulse Resp B/P Pulse Ox O2 Delivery O2 Flow Rate FiO2 07/11/16 12:00 97.4 97 24 119/57 98 07/11/16 11:05 80 07/11/16 08:16 96 Simple Mask 6.00 07/11/16 08:00 97.5 84 24 178/81 98 07/11/16 07:35 96 Simple Mask 6.00 07/11/16 07:30 85 Nasal Cannula 3.00 07/11/16 05:06 98.1 83 20 94/50 97 07/11/16 00:53 98.7 88 18 104/62 97 07/10/16 21:00 Nasal Cannula 3.00 07/10/16 20:51 94 Nasal Cannula 3.00 07/10/16 20:24 95 07/10/16 20:00 97.7 101 20 168/84 94 07/10/16 17:05 16 07/10/16 16:09 96 18 130/60 96 07/10/16 12:25 82 (Kiya Drew) -: 07/08/16 0652 07/10/16 0429 Physical Exam General Appearance: Well Developed, Well Nourished, Comfortable (Kiya Drew) Neck Neck Exam: Neck Supple (Kiya Drew) Pulmonary Resp Exam: Breath Sounds Equal, Crackles, Decreased Bases (Kiya Drew) Cardiology CV Exam: Regular (Kiya Drew) Gastrointestinal/Abdomen GI Exam: Soft, Non-Tender, Bowel Sounds Present (Kiya Drew) Integumentary Skin Exam: Clear, Dry (Kiya Drew) Extremeties Extremities Exam: No Edema, Moderate Edema (Kiya Drew) Neurologic Neuro Exam: Awake, Oriented (Kiya Drew) Psychiatric Psych Exam: Appropriate Responses (Kiya Drew) Assessment/Plan Problem List: (1) ZAN (acute kidney injury) Plan: ZAN due to sepsis, UTI on CKD4, follows with Dr. Valentin poor renal function, although it has improved renal labs ordered given Samsca yesterday, Na improved some edema, begin Lasix 40 BID po as per home medications requesting sosa as he cannot ambulate will investigate as to why a chronic sosa is indicated renal panel in am avoid IVF (2) Urinary tract infection Plan: continue antibiotics, on Fluconazole (3) DM (diabetes mellitus) Plan: has not been requiring insulin, monitor (4) HTN (hypertension) Plan: HTN medications have not been resumed BP stable (5) CHF (congestive heart failure) Plan: monitor fluid volume status EF 45% sever Pulmonary hypertension (6) Hyponatremia Plan: correcting, given Samsca x 1 (Kiya Drew) Plan patient was seen and examined. Agree with above assessment and plan. (Guicho Pollard MD) Kiya Drew Jul 11, 2016 12:25 Guicho Pollard MD Jul 11, 2016 16:11
[2016-07-11 13:05] LABS: TRANSFERRIN IRON PROFILE 175 MG/DL (200-360)
[2016-07-11 13:16] LABS: POTASSIUM 4.6 MEQ/L (3.5-5.1)
--- NOTE | 2016-07-11 16:28 | PD.CONS ---
HPI Service Urology Consult Requested By Reason for Consult Urinary retention Primary Care Physician [facility] Diagnosis: (1) Acute renal insufficiency ICD Code: N28.9 (2) Hyperkalemia ICD Code: E87.5 (3) UTI (urinary tract infection) ICD Code: N39.0 (4) Bradycardia ICD Code: R00.1 (5) Weakness ICD Code: R53.1 History of Present Illness 81 year-old gentleman with history bladder cancer admitted for workup of generalized malaise. Pulmonary workup demonstrated elevation of the BUN/ creatinine and a Rosales catheter was placed with improvement in those parameters. The Rosales was subsequently removed however the patient developed some dysuria and frequency of urination. Multiple attempts were made by the nursing staff to replace the Rosales without success thus prompting the urology consult. At the time of consultation the patient reported that he is under the care of Dr. Shah for bladder cancer and his last cystoscopic evaluation fail to demonstrate evidence of recurrent disease. He did at one time received intravesical BCG therapy. Review of Systems Constitutional: COMPLAINS OF: Fatigue, DENIES: Fever Cardiovascular: DENIES: Chest pain, Palpitations Genitourinary: COMPLAINS OF: Dysuria, DENIES: Hematuria Musculoskeletal: DENIES: Back pain Except as stated in HPI: all other systems reviewed are Neg Past Family Social History Past Medical History Bladder cancer Hypertension Diabetes Coronary artery disease CHF History CVA Anemia Chronic kidney disease Osteoporosis Depression Gout Past Surgical History Status post multiple TURBTs Status post CABG Status post bilateral cataract surgery Status post left knee surgery Status post appendectomy Status post neck surgery Reported Medications Refer to EMR Allergies: Coded Allergies: Metformin (Verified Allergy, Severe, DIARRHEA, 04/20/15) Morphine (Verified Allergy, Severe, 04/20/15) Active Ordered Medications Refer to EMR Family History CT Cancer Social History Former smoker Denies alcohol or history intravenous drug abuse Physical Exam Vital Signs Vital Signs Date Time Temp Pulse Resp B/P Pulse Ox O2 Delivery O2 Flow Rate FiO2 07/11/16 12:00 97.4 97 24 119/57 98 07/11/16 11:05 80 07/11/16 08:16 96 Simple Mask 6.00 07/11/16 08:00 97.5 84 24 178/81 98 07/11/16 07:35 96 Simple Mask 6.00 07/11/16 07:30 85 Nasal Cannula 3.00 07/11/16 05:06 98.1 83 20 94/50 97 07/11/16 00:53 98.7 88 18 104/62 97 07/10/16 21:00 Nasal Cannula 3.00 07/10/16 20:51 94 Nasal Cannula 3.00 07/10/16 20:24 95 07/10/16 20:00 97.7 101 20 168/84 94 07/10/16 17:05 16 Physical Exam GENERAL: This is a well-nourished, well-developed patient, in no apparent distress. SKIN: No rashes, ecchymoses or lesions. Cool and dry. HEAD: Atraumatic. Normocephalic. No temporal or scalp tenderness. EYES: Pupils equal round and reactive. Extraocular motions intact. No scleral icterus. No injection or drainage. ENT: Nose without bleeding, purulent drainage or septal hematoma. Throat without erythema, tonsillar hypertrophy or exudate. Uvula midline. Airway patent. NECK: Trachea midline. No JVD or lymphadenopathy. Supple, nontender, no meningeal signs. GASTROINTESTINAL: Abdomen soft, non-tender, nondistended. No hepato-splenomegaly , or palpable masses. No guarding. GENITOURINARY: Bladder distended, penile hypospadias MUSCULOSKELETAL: Bilateral lower extremities with pitting edema NEUROLOGICAL: Awake and alert. Cranial nerves II through XII intact. Motor and sensory grossly within normal limits. Normal speech. Laboratory Laboratory Tests Test 07/11/16 12:25 Sodium Level 138 Potassium Level 4.6 Chloride Level 103 Carbon Dioxide Level 24.0 Anion Gap 11 Blood Urea Nitrogen 63 Creatinine 2.00 Estimat Glomerular Filtration 32 Rate Random Glucose 117 Calcium Level 8.7 Phosphorus Level 3.8 Iron Level 21 Total Iron Binding Capacity 245 Percent Iron Saturation 8.6 Albumin 3.0 Date/Time Procedure Status Source Growth 07/07/16 16:30 Urine Culture - Final Complete Urine Catheterized Urine Tata Glabrata 07/07/16 16:30 Influenza Types A,B Antigen (ROSALINO) - Final Complete Nasal Aspirate NEGATIVE FOR FLU A AND B ANTIGEN.... 07/07/16 16:10 Aerobic Blood Culture - Preliminary Resulted Blood Peripheral NO GROWTH IN 4 DAYS 07/07/16 16:10 Anaerobic Blood Culture - Preliminary Resulted Blood Peripheral NO GROWTH IN 4 DAYS Result Diagram: 07/08/16 0652 07/11/16 1225 Course I initially attempted to place a 16 [place] Orsales catheter using sterile technique however after advancing the catheter approximately 8 cm significant resistance was met. Male sounds were then utilized and the urethra was gently dilated in sequential fashion starting at 12 [place] up to 18 [place]. An 18 [place] Rosales was then advanced over a wire without difficulty. For the initial 600 cc of drainage the urine was clear yellow however the final 100 cc of urine was noted to be cloudy in appearance. Assessment and Plan Assessment and Plan Urologic impression: Urinary retention related to urethral stricture formation which is now been dilated. Recommendations: #1 leave present Rosales catheter indwelling for at least 1 week #2 patient advised to continue follow up with his established urologist Dr. Shah for ongoing urologic care #3 will be available as needed during present hospitalization Problem Qualifiers (1) UTI (urinary tract infection): Qualified Code: N30.01 - Acute cystitis with hematuria Jeison Tai MD Jul 11, 2016 16:28
[2016-07-11] MEDS: FUROSEMIDE 40 MG TAB PO SCH (16:59)
[2016-07-11] MEDS: ACETAMINOPHEN/CODEINE 300 MG/30 MG TAB PO PRN (17:02)
[2016-07-12] VITALS (9 sets, daily range): BP systolic 146–162; BP diastolic 66–92; PULSE 92–116; RESP 18–24; TEMP 97.2–98.5; O2SAT 93–98
[2016-07-12] MEDS: ACETAMINOPHEN/CODEINE 300 MG/30 MG TAB PO PRN ×2 (00:17→04:20)
[2016-07-12] MEDS: INSULIN NovoLIN REGULAR SUPPLEMENTAL SCALE SQ SCH ×4 (06:14→20:24)
[2016-07-12] MEDS: HEPARIN SODIUM - SQ 10,000 UNITS/ML VIAL SQ SCH ×3 (06:14→22:11)
[2016-07-12] MEDS: CEFEPIME INJ 2,000 MG in SODIUM CHLORIDE 0.9% INJ 100 ML IV SCH (08:37)
[2016-07-12] MEDS: LACTOBACILLUS ACIDOPHILUS TAB PO SCH ×3 (08:38→16:54)
[2016-07-12] MEDS: FLUCONAZOLE 100 MG TAB PO SCH (08:39)
[2016-07-12] MEDS: FUROSEMIDE 40 MG TAB PO SCH ×2 (08:39→16:54)
[2016-07-12] MEDS: ASPIRIN 325 MG TAB PO SCH (08:39)
[2016-07-12] MEDS: SODIUM CHLORIDE 0.9% FLUSH 5 ML FLUSH FLUSH SCH ×2 (08:39→20:24)
[2016-07-12] MEDS: guaiFENesin E.R. 600 MG TAB PO SCH ×2 (08:39→20:24)
[2016-07-12] MEDS: SERTRALINE HCL 50 MG TAB PO SCH (08:39)
[2016-07-12] MEDS: PANTOPRAZOLE SOD 40 MG DELAYED RELEASE TAB PO SCH (08:39)
[2016-07-12] MEDS: RESP: ALBUTEROL 2.5 MG/IPRATROPIUM 0.5 MG NEB (SCH) NEB ×2 (08:52→13:23)
--- NOTE | 2016-07-12 12:12 | HHI.NPPN ---
Subjective Complaints: Obesity, Shortness of Breath General Problems: Anemia Renal Failure: Stage IV History of Present Illness 81 year old with CKD 4, DM,HTN,CHF Interval History Renal function is better. Urology has evaluated, sosa in place. (Kiya Drew) Review of Systems General Constitutional: Fatigue (Kiya Drew) Respiratory Lungs: SOB (Kiya Drew) Objective Data Data 07/11/16 07/12/16 18:59 06:59 Intake Total 580 ml Output Total 200 ml Balance 580 ml -200 ml Intake Oral 480 ml IV Total 100 ml Output Urine Total 200 ml # Voids 1 # Bowel Movements 0 0 Vital Signs Date Time Temp Pulse Resp B/P Pulse Ox O2 Delivery O2 Flow Rate FiO2 07/12/16 09:00 92 07/12/16 08:54 96 Nasal Cannula 4.00 07/12/16 08:00 97.3 94 18 153/66 96 07/12/16 08:00 Nasal Cannula 4.00 07/12/16 04:00 97.4 95 18 146/69 98 07/12/16 00:00 98.1 103 18 151/75 97 07/11/16 20:00 97.5 93 20 145/69 96 07/11/16 20:00 Nasal Cannula 4.00 07/11/16 20:00 95 07/11/16 19:50 96 Nasal Cannula 4.00 07/11/16 16:00 97.9 98 24 137/62 99 (Kiya Drew) -: 07/08/16 0652 07/12/16 0849 Tubes & Lines: Sosa (Kiya Drew) Physical Exam General Appearance: Well Developed, Well Nourished, Comfortable (Kiya Drew) Neck Neck Exam: Neck Supple (Kiya Drew) Pulmonary Resp Exam: Breath Sounds Equal, Crackles, Decreased Bases (Kiya Drew) Cardiology CV Exam: Regular (Kiya Drew) Gastrointestinal/Abdomen GI Exam: Soft, Non-Tender, Bowel Sounds Present (Kiya Drew) Integumentary Skin Exam: Clear, Dry (Kiya Drew) Extremeties Extremities Exam: No Edema, Moderate Edema (Kiya Drew) Neurologic Neuro Exam: Awake, Oriented (Kiya Drew) Psychiatric Psych Exam: Appropriate Responses (Kiya Drew) Assessment/Plan Problem List: (1) ZAN (acute kidney injury) Plan: ZAN due to sepsis, UTI follows with Dr. Valentin outpatient renal function is better continue Lasix 40 BID po as per home medications has retention, was evaluated by urology, will follow up after discharge avoid IVF avoid nephrotoxins he is cleared for discharge from renal standpoint, will sign off at this time (2) Urinary tract infection Plan: continue antibiotics, on Fluconazole (3) DM (diabetes mellitus) Plan: has not been requiring insulin, monitor (4) HTN (hypertension) Plan: on lasix BP stable (5) CHF (congestive heart failure) Plan: monitor fluid volume status EF 45% sever Pulmonary hypertension (6) Hyponatremia Plan: given Samsca x 1 discussed fluid restriction (Kiya Drew) Plan patient was seen and examined. Renal function has improved. GFR at baseline. We will see him as needed. He can be discharged from renal standpoint. Agree with above assessment and plan. (Guicho Pollard MD) Kiya Drew Jul 12, 2016 12:12 Guicho Pollard MD Jul 12, 2016 16:40
--- NOTE | 2016-07-12 17:05 | HHI.PR ---
Subjective Remarks This is a pleasant 81 y/o male who has Acute Renal Injury, UTI and Bradycardia, came with weakness, received IV fluids, Hypertension, DM II, CAD status post CABG, CHF, CVA, Bladder cancer, Anemia, Peripheral neuropathy, CKD III, Osteoporosis, Depression, Gout, Patient stable improving Renal condition improving Creatinine 3.04 from 5.07 on admission, his Urine Culture growing Tata Glabrata but because the patient is debilitated and with chronic condition. has Chronic Respiratory Insufficiency, he has Chronic Diastolic and systolic heart failure stable, No nausea, vomit or diarrhea, Discussed through the phone with his Mrs. Donita Madden to the phone number [phone]. discussed with nurse Kevin. Objective Vital Signs Date Time Temp Pulse Resp B/P Pulse Ox O2 Delivery O2 Flow Rate FiO2 07/12/16 12:00 97.2 94 18 155/92 96 07/12/16 09:00 92 07/12/16 08:54 96 Nasal Cannula 4.00 07/12/16 08:00 97.3 94 18 153/66 96 07/12/16 08:00 Nasal Cannula 4.00 07/12/16 04:00 97.4 95 18 146/69 98 07/12/16 00:00 98.1 103 18 151/75 97 07/11/16 20:00 97.5 93 20 145/69 96 07/11/16 20:00 Nasal Cannula 4.00 07/11/16 20:00 95 07/11/16 19:50 96 Nasal Cannula 4.00 I/O 07/11/16 07/11/16 07/11/16 07/12/16 07/12/16 07/12/16 07:00 15:00 23:00 07:00 15:00 23:00 Intake Total 580 ml 480 ml Output Total 200 ml 1000 ml Balance 580 ml -200 ml -520 ml Intake Oral 480 ml 480 ml IV Total 100 ml Output Urine Total 200 ml 1000 ml # Voids 1 1 # Bowel Movements 0 0 0 Result Diagram: 07/08/16 0652 07/12/16 0849 Imaging Last Impressions Renal Ultrasound 07/08/16 0000 Signed Impressions: Service Date/Time: Friday, July 08, 2016 15:25 - CONCLUSION: There are small right and left pleural effusions. There is no mass or hydronephrosis. Piter Ta MD FACR Lower Extremity Ultrasound 07/08/16 0000 Signed Impressions: Service Date/Time: Friday, July 08, 2016 05:49 - CONCLUSION: Normal examination. Larry Mccullough MD Chest X-Ray 07/07/16 1743 Signed Impressions: Service Date/Time: July 18:00 - CONCLUSION: Volume overload and CHF. K. Jan Garzon MD Procedures No procedures performed. Other Results Laboratory Tests Test 07/09/16 07/10/16 07/11/16 07/12/16 11:15 14:02 12:25 08:49 Random Cortisol 23.3 MCG/DL B-Type Natriuretic Peptide 3175 PG/ML Iron Level 21 MCG/DL Total Iron Binding Capacity 245 MCG/DL Percent Iron Saturation 8.6 % Sodium Level 139 MEQ/L Potassium Level 4.0 MEQ/L Chloride Level 103 MEQ/L Carbon Dioxide Level 26.0 MEQ/L Anion Gap 10 MEQ/L Blood Urea Nitrogen 60 MG/DL Creatinine 1.72 MG/DL Estimat Glomerular Filtration 38 ML/MIN Rate Random Glucose 98 MG/DL Calcium Level 9.0 MG/DL Phosphorus Level 3.2 MG/DL Albumin 3.0 GM/DL Objective Remarks GENERAL: Obesity, Mild to moderate respiratory distress. SKIN: Superficial ecchymosis HEAD: Atraumatic. Normocephalic. No temporal or scalp tenderness. EYES: . No scleral icterus. No injection or drainage. ENT: Nose without bleeding, purulent drainage or septal hematoma. . Airway patent. NECK: Trachea midline. No JVD Supple, nontender, no meningeal signs. CARDIOVASCULAR: Regular rate and rhythm without murmurs, gallops, or rubs. RESPIRATORY: Decreased breath sounds bilateral and no wheezing no crackles. GASTROINTESTINAL: Abdomen soft, non-tender, nondistended. No guarding. : Patient has Rosales catheter. asked for removal. MUSCULOSKELETAL: Extremities without clubbing, cyanosis, or edema. Right lower extremity much bigger than the left. Bilateral pitting edema about 2+. NEUROLOGICAL: Awake and alert.Motor and sensory grossly within normal limits. Normal speech. Medications and IVs Current Medications Medications (Trade) Dose Ordered Sig/Bucky Route Start Time Stop Time Status Last Admin (NS Flush) 2 ml UNSCH PRN FLUSH 07/07/16 20:15 07/10/16 09:45 (NS Flush) 2 ml BID FLUSH 07/07/16 21:00 07/13/16 08:47 (Heparin Inj) 5,000 units Q8H SQ 07/08/16 06:00 07/13/16 14:00 (Narcan Inj) 0.4 mg UNSCH PRN IV 07/07/16 20:15 (Aspirin) 325 mg DAILY PO 07/08/16 09:00 07/13/16 08:47 (Levsin) 0.125 mg Q4H PRN PO 07/08/16 08:15 (Tears Naturale Opth Soln) 1 drop TID PRN EACH EYE 07/08/16 08:15 (Zoloft) 50 mg DAILY PO 07/08/16 09:00 07/13/16 08:48 (D50w (Vial) Inj) 25 ml UNSCH PRN IV PUSH 07/08/16 08:15 (Glucagon Inj) 1 mg UNSCH PRN OTHER 07/08/16 08:15 (Protonix) 40 mg DAILY PO 07/08/16 09:00 07/13/16 08:48 Lactobacillus Acidophilus 1 tab 1 tab TID PO 07/08/16 09:00 07/13/16 16:27 (Maxipime Inj/NS Inj) 100 ml @ 200 mls/hr Q24H IV 07/09/16 10:00 07/13/16 10:00 (Tylenol) 650 mg Q4H PRN PO 07/08/16 13:00 07/10/16 02:42 (Tylenol-Codeine #3) 1 tab Q4H PRN PO 07/08/16 13:00 07/12/16 04:20 (Mucinex Er) 600 mg BID PO 07/08/16 21:00 07/13/16 08:48 (Diflucan) 100 mg DAILY PO 07/10/16 09:00 07/13/16 08:47 (Lasix) 40 mg BID@09,18 PO 07/11/16 18:00 07/13/16 16:27 A/P Problem List: (1) Weakness ICD Code: R53.1 (2) Acute on chronic kidney disease, stage 3 ICD Code: N18.3 (3) UTI (urinary tract infection) ICD Code: N39.0 (4) CHF (congestive heart failure) ICD Code: I50.9 (5) HTN (hypertension) ICD Code: I10 Assessment and Plan 1. Generalized Weakness secondary to multiple admissions to the Hospital, also followed at [facility], recurrent UTI, chronic deconditioning, will need Etiquette Teacher, OT/PT for discharge to Rehab. 2. UTI on Maxipime continue present care and also today Urine Culture with Tata Glabrata he has chronic debilitating disease I will start treatment with Fluconazole renally adjusted. to 100 mg by mouth daily for 14 days. 3. Electrolyte derangement Improved nephrology specialist following. 4. Bradycardia stable. 5. Acute Kidney Injury due to Sepsis and Urinary Tract infection, the patient has Poor renal function, followed by Nephrology specialist, followed by Doctor Valentin as outpatient, recommended to continue Lasix 40 mg BID, He has Urinary retention and Rosales cath is on. 6. Bladder cancer 7. Hypertension controlled. 8. CVA by history 9. Depression stable 10. Anemia on Epogen by Nephrology specialist. 11. Osteoporosis. 12. CHF with mild Exacerbation sever Pulmonary hypertension, as Chronic Combines Systolic and Diastolic Heart failure, Systolic function is mildly reduced with EF 45-50%, Mild to Moderate Mitral regurgitation Moderate Tricuspid regurgitation, Pulmonary artery with Moderate to Severe Pulmonary Hypertension. 13. Hyponatremia correcting by Nephrology specialist recommended Samsca x 1 14. Urinary Retention related to Urethral stricture formation which is now been dilated, by Urology specialist recommended to leave Rosales cath indwelling for at least one week, follow with his primary Urology specialist Doctor Pablo by Doctor Jeison Tai. 15. Chronic Respiratory Insufficiency on chronic Oxygen management DVT prophylaxison heparin. GI prophylaxis on pantoprazole. No changes to anterior assessment he was discussed with his Mrs. Donita Madden to the Phone number [phone] will have a meeting with patient and his day after tomorrow to know what they want her refuse going to SNF but his wants him going to SNF. Doppler US of LE done- negative for DVT Discharge Planning Cleared by Nephrology specialist going home will discuss with patient and but she will be here in two days. Problem Qualifiers (1) UTI (urinary tract infection): Qualified Code: N30.01 - Acute cystitis with hematuria Satnam Sim MD Jul 12, 2016 17:05
[2016-07-12] MEDS: RESP: ALBUTEROL 2.5 MG/IPRATROPIUM 0.5 MG NEB (PRN) NEB ×2 (19:26→21:10)
[2016-07-13] VITALS (10 sets, daily range): BP systolic 131–183; BP diastolic 74–87; PULSE 100–140; RESP 20–24; TEMP 96.7–98.3; O2SAT 95–98
[2016-07-13] MEDS: INSULIN NovoLIN REGULAR SUPPLEMENTAL SCALE SQ SCH ×4 (06:06→21:00)
[2016-07-13] MEDS: HEPARIN SODIUM - SQ 10,000 UNITS/ML VIAL SQ SCH ×3 (06:06→21:11)
[2016-07-13] MEDS: FLUCONAZOLE 100 MG TAB PO SCH (08:47)
[2016-07-13] MEDS: ASPIRIN 325 MG TAB PO SCH (08:47)
[2016-07-13] MEDS: SODIUM CHLORIDE 0.9% FLUSH 5 ML FLUSH FLUSH SCH ×2 (08:47→21:00)
[2016-07-13] MEDS: FUROSEMIDE 40 MG TAB PO SCH ×2 (08:48→16:27)
[2016-07-13] MEDS: PANTOPRAZOLE SOD 40 MG DELAYED RELEASE TAB PO SCH (08:48)
[2016-07-13] MEDS: LACTOBACILLUS ACIDOPHILUS TAB PO SCH ×3 (08:48→16:27)
[2016-07-13] MEDS: SERTRALINE HCL 50 MG TAB PO SCH (08:48)
[2016-07-13] MEDS: guaiFENesin E.R. 600 MG TAB PO SCH ×2 (08:48→21:13)
[2016-07-13] MEDS: CEFEPIME INJ 2,000 MG in SODIUM CHLORIDE 0.9% INJ 100 ML IV SCH (10:00)
[2016-07-13] MEDS: RESP: ALBUTEROL 2.5 MG/IPRATROPIUM 0.5 MG NEB (PRN) NEB ×3 (10:31→22:10)
--- NOTE | 2016-07-13 17:11 | HHI.PR ---
Subjective Remarks This is a pleasant 81 y/o male who has Acute Renal Injury, UTI and Bradycardia, came with weakness, received IV fluids, Hypertension, DM II, CAD status post CABG, CHF, CVA, Bladder cancer, Anemia, Peripheral neuropathy, CKD III, Osteoporosis, Depression, Gout, Patient stable improving Renal condition improving Creatinine 3.04 from 5.07 on admission, his Urine Culture growing Tata [place] but because the patient is debilitated and with chronic condition. has Chronic Respiratory Insufficiency, he has Chronic Diastolic and systolic heart failure stable, No nausea, vomit or diarrhea, will follow in am tomorrow in a meeting with the patient and his Mrs. Donita Madden. Objective Vital Signs Date Time Temp Pulse Resp B/P Pulse Ox O2 Delivery O2 Flow Rate FiO2 07/13/16 12:00 97.2 108 20 156/80 98 07/13/16 10:30 96 Simple Mask 6.00 07/13/16 08:00 97.4 100 20 131/76 96 07/13/16 08:00 94 Simple Mask 6.00 07/13/16 04:00 97.7 108 24 152/74 98 07/13/16 00:00 97.3 122 24 152/79 95 07/12/16 20:00 Nasal Cannula 4.00 07/12/16 20:00 98.5 116 24 162/76 97 07/12/16 19:27 93 Nasal Cannula 4.00 I/O 07/12/16 07/12/16 07/12/16 07/13/16 07/13/16 07/13/16 07:00 15:00 23:00 07:00 15:00 23:00 Intake Total 480 ml 280 ml 220 ml Output Total 1000 ml 1400 ml 500 ml Balance -520 ml -1120 ml -280 ml Intake Oral 480 ml 280 ml 220 ml Output Urine Total 1000 ml 1400 ml 500 ml # Bowel Movements 0 0 Result Diagram: 07/12/16 0849 Imaging Last Impressions Renal Ultrasound 07/08/16 0000 Signed Impressions: Service Date/Time: Friday, July 08, 2016 15:25 - CONCLUSION: There are small right and left pleural effusions. There is no mass or hydronephrosis. Piter Ta MD FACR Lower Extremity Ultrasound 07/08/16 0000 Signed Impressions: Service Date/Time: Friday, July 08, 2016 05:49 - CONCLUSION: Normal examination. Larry Mccullough MD Chest X-Ray 07/07/16 [id number] Signed Impressions: Service Date/Time: July 18:00 - CONCLUSION: Volume overload and CHF. Sheryl Garzon MD Procedures No procedures performed. Other Results Laboratory Tests Test 07/09/16 07/10/16 07/11/16 07/12/16 11:15 14:02 12:25 08:49 Random Cortisol 23.3 MCG/DL B-Type Natriuretic Peptide 3175 PG/ML Iron Level 21 MCG/DL Total Iron Binding Capacity 245 MCG/DL Percent Iron Saturation 8.6 % Sodium Level 139 MEQ/L Potassium Level 4.0 MEQ/L Chloride Level 103 MEQ/L Carbon Dioxide Level 26.0 MEQ/L Anion Gap 10 MEQ/L Blood Urea Nitrogen 60 MG/DL Creatinine 1.72 MG/DL Estimat Glomerular Filtration 38 ML/MIN Rate Random Glucose 98 MG/DL Calcium Level 9.0 MG/DL Phosphorus Level 3.2 MG/DL Albumin 3.0 GM/DL Objective Remarks GENERAL: Obesity, Mild to moderate respiratory distress. SKIN: Superficial ecchymosis HEAD: Atraumatic. Normocephalic. No temporal or scalp tenderness. EYES: . No scleral icterus. No injection or drainage. ENT: Nose without bleeding, purulent drainage or septal hematoma. . Airway patent. NECK: Trachea midline. No JVD Supple, nontender, no meningeal signs. CARDIOVASCULAR: Regular rate and rhythm without murmurs, gallops, or rubs. RESPIRATORY: Decreased breath sounds bilateral and no wheezing no crackles. GASTROINTESTINAL: Abdomen soft, non-tender, nondistended. No guarding. : Patient has Rosales catheter. asked for removal. MUSCULOSKELETAL: Extremities without clubbing, cyanosis, or edema. Right lower extremity much bigger than the left. Bilateral pitting edema about 2+. NEUROLOGICAL: Awake and alert.Motor and sensory grossly within normal limits. Normal speech. Medications and IVs Current Medications Medications (Trade) Dose Ordered Sig/Bucky Route Start Time Stop Time Status Last Admin (NS Flush) 2 ml UNSCH PRN FLUSH 07/07/16 20:15 07/10/16 09:45 (NS Flush) 2 ml BID FLUSH 07/07/16 21:00 07/13/16 08:47 (Heparin Inj) 5,000 units Q8H SQ 07/08/16 06:00 07/13/16 14:00 (Narcan Inj) 0.4 mg UNSCH PRN IV 07/07/16 20:15 (Aspirin) 325 mg DAILY PO 07/08/16 09:00 07/13/16 08:47 (Levsin) 0.125 mg Q4H PRN PO 07/08/16 08:15 (Tears Naturale Opth Soln) 1 drop TID PRN EACH EYE 07/08/16 08:15 (Zoloft) 50 mg DAILY PO 07/08/16 09:00 07/13/16 08:48 (D50w (Vial) Inj) 25 ml UNSCH PRN IV PUSH 07/08/16 08:15 (Glucagon Inj) 1 mg UNSCH PRN OTHER 07/08/16 08:15 (Protonix) 40 mg DAILY PO 07/08/16 09:00 07/13/16 08:48 Lactobacillus Acidophilus 1 tab 1 tab TID PO 07/08/16 09:00 07/13/16 16:27 (Maxipime Inj/NS Inj) 100 ml @ 200 mls/hr Q24H IV 07/09/16 10:00 07/13/16 10:00 (Tylenol) 650 mg Q4H PRN PO 07/08/16 13:00 07/10/16 02:42 (Tylenol-Codeine #3) 1 tab Q4H PRN PO 07/08/16 13:00 07/12/16 04:20 (Mucinex Er) 600 mg BID PO 07/08/16 21:00 07/13/16 08:48 (Diflucan) 100 mg DAILY PO 07/10/16 09:00 07/13/16 08:47 (Lasix) 40 mg BID@09,18 PO 07/11/16 18:00 07/13/16 16:27 A/P Problem List: (1) Weakness ICD Code: R53.1 (2) Acute on chronic kidney disease, stage 3 ICD Code: N18.3 (3) UTI (urinary tract infection) ICD Code: N39.0 (4) CHF (congestive heart failure) ICD Code: I50.9 (5) HTN (hypertension) ICD Code: I10 Assessment and Plan 1. Generalized Weakness secondary to Deconditioning multiple admissions to the Hospital, follows at [facility], recurrent UTI, chronic deconditioning, will need Production Control Planner, OT/PT for discharge to Rehab. 2. UTI on Maxipime continue present care and also today Urine Culture with Tata Glabrata he has chronic debilitating disease I will start treatment with Fluconazole renally adjusted. to 100 mg by mouth daily for 14 days. 3. Electrolyte derangement Improved nephrology specialist following. 4. Bradycardia stable. 5. Acute Kidney Injury due to Sepsis and Urinary Tract infection, the patient has Poor renal function, followed by Nephrology specialist, followed by Doctor Valentin as outpatient, recommended to continue Lasix 40 mg BID, He has Urinary retention and Rosales cath is on. clear for discharge by Nephrology specialist. 6. Bladder cancer by history. 7. Hypertension controlled. 8. CVA by history 9. Depression stable 10. Anemia on Epogen by Nephrology specialist. 11. Osteoporosis. 12. CHF with mild Exacerbation sever Pulmonary hypertension, as Chronic Combines Systolic and Diastolic Heart failure, Systolic function is mildly reduced with EF 45-50%, Mild to Moderate Mitral regurgitation Moderate Tricuspid regurgitation, Pulmonary artery with Moderate to Severe Pulmonary Hypertension. 13. Hyponatremia correcting by Nephrology specialist recommended Samsca x 1 14. Urinary Retention related to Urethral stricture formation which is now been dilated, by Urology specialist recommended to leave Rosales cath indwelling for at least one week, follow with his primary Urology specialist Doctor Pablo by Doctor Jeison Tai. 15. Chronic Respiratory Insufficiency on chronic Oxygen management DVT prophylaxison heparin. GI prophylaxis on pantoprazole. No changes to anterior assessment Discussed with patient and nurse also with Production Control Planner. signed [id number] for SNF placement if needed. Doppler US of LE done- negative for DVT Discharge Planning Cleared by Nephrology specialist going home will discuss with patient and but she will be here tomorrow. Problem Qualifiers (1) UTI (urinary tract infection): Qualified Code: N30.01 - Acute cystitis with hematuria Satnam Sim MD Jul 13, 2016 17:11
[2016-07-13 21:06] LABS: C. DIFF EPI 027 PRESUMPTIVE NEGATIVE (NEGATIVE); C. DIFF TOXIN PCR NEGATIVE (NEGATIVE)
[2016-07-13] MEDS ORDERED: CEFEPIME INJ 2,000 MG in SODIUM CHLORIDE 0.9% INJ 100 ML IV SCH (22:00)
[2016-07-13] MEDS ORDERED: FUROSEMIDE 40 MG/4 ML VIAL IV PUSH ONE (23:45)
[2016-07-14] VITALS (12 sets, daily range): BP systolic 136–176; BP diastolic 71–86; PULSE 100–120; RESP 21–24; TEMP 97.3–98.1; O2SAT 94–100
--- NOTE | 2016-07-14 00:11 | RADRPT ---
EXAM DATE/TIME: 07/13/2016 23:52 [facility] COMPARISON: CHEST SINGLE AP, July 07, 2016, 18:00. INDICATIONS : Respiratory distress. MEDICAL HISTORY : None. SURGICAL HISTORY : None. ENCOUNTER: Subsequent ACUITY: 1 day PAIN SCORE: 6/10 LOCATION: Bilateral chest FINDINGS: A single view of the chest demonstrates persistent bilateral pleural effusions with common atelectati c changes. Increased interstitial markings and cardiomegaly all characteristic of worsening CHF. Medi an sternotomy wires are intact. CONCLUSION: Plain film findings characteristic of worsening CHF with bilateral pleural effusions and concomi tant atelectatic changes. Michele Pineda MD on July 14, 2016 at 0:08 Board Certified Radiologist. This report was verified electronically.
[2016-07-14 03:24] LABS: BLOOD GAS BASE EXCESS -0.1 mmol/L (-2-2); BLOOD GAS CARBOXYHEMOGLOBIN 1.6 % (0-4); BLOOD GAS HCO3 24 mmol/L (22-26); BLOOD GAS O2 HGB SATURATION 91 % (90-100); BLOOD GAS OXYGEN CONTENT 11.2 Vol % (12.0-20.0); BLOOD GAS PCO2 41 mmHg (38-42); BLOOD GAS PO2 70 mmHg (61-120); BLOOD GAS TOTAL HGB 8.7 G/DL (12.0-16.0); CRITICAL VALUE NO; OXYGEN DEVICE BiPAP; TEMP CORR TO 98.6; VENT SETTINGS IPAP10/EPAP5
[2016-07-14 03:25] LABS: DRAW SITE LT RADIAL; FIO2 30 %; NUMBER OF ARTERIAL PUNCTURES 2; STAT YES; ULNAR PULSE PRESENT
--- NOTE | 2016-07-14 03:39 | HHI.PR ---
Addendum to Inpatient Note Addendum Reason: Additional Documentation Additional Information I was called by patient's nurse at around 2330 that patient was tachycardic, with significant effort of breathing. Reviewed patient's chart. Patient is known to me on the date of this hospitalization. Patient was given IV fluids on the day of admission and was receiving IV antibiotics and hydration due to his renal failure. He has had an echocardiogram done on July 08, 2016 showing EF of 45-50%. He also does have moderate to severe pulmonary hypertension with peak pressure of 73. Therefore ordered BiPAP stat. Also ordered for Lasix 40 mg IV one dose stat. Chest x-ray was also ordered. Came to see patient at the bedside. Chart reviewed in detail. On exam, patient is awake, alert, oriented. However in acute respiratory distress with significant work of breathing. He does report of shortness of breath. He was feeling his palpitations as well. Patient is also noted to be third spacing with significant peripheral edema in his bilateral lower extremities and upper extremities. 2-3+. Heart rate is regular, tachycardic, no murmur appreciated. Lung exam reveals bilateral crepitations although somewhat limited exam since patient was in acute distress and unable to move around due to his body habitus as well. Abdomen is soft and nontender. No rebound. No guarding. Musculoskeletal: Lower extremities with no calf asymmetry. However had significant peripheral edema. Impression: Fluid overload Acute hypoxemic respiratory failuresecondary to fluid overload Tachycardiasecondary to respiratory distress Acute kidney injuryon admissionresolving. UTIon antibiotics, and on fluconazole. Diabetes Hypertension CHFin acute exacerbation at present Plan: As mentioned above, I had given Lasix 40 mg IV stat dose. Place patient on BiPAP 15 over 5, FiO2 to keep O2 sat around 90-93%. Adjust BiPAP settings based on patient's response. ABG about an hour or so later after BiPAP. Chest x-ray stat was done. I have reviewed this personally. Bilateral pulmonary edema. Input/output. The patient was then examined again after being on BiPAP. patient is much more comfortable. He is actually falling asleep by then. ABG was done post BiPAP settings. This was reviewed. No significant CO2 retention or hypoxia. We'll keep same settings. Since patient was also having acute kidney injury, at this point, I would continue with Lasix by mouth dosing as ordered by his primary team for the morning. I do believe that he has improved significantly with this 1 times dose of Lasix IV and likely would not need further IV diuresis. He has made 600 cc of urine so far. We'll continue to monitor. Will need adjustment of Lasix dosing based on his clinical response. By the morning, we'll try to taper him off BiPAP. Critical care time 30 minutes Mathieu Sam MD Jul 14, 2016 03:39
[2016-07-14] MEDS: HEPARIN SODIUM - SQ 10,000 UNITS/ML VIAL SQ SCH ×3 (05:32→20:34)
[2016-07-14] MEDS: INSULIN NovoLIN REGULAR SUPPLEMENTAL SCALE SQ SCH ×4 (07:00→20:30)
[2016-07-14] MEDS: RESP: ALBUTEROL 2.5 MG/IPRATROPIUM 0.5 MG NEB (PRN) NEB (08:16)
[2016-07-14] MEDS: PANTOPRAZOLE SOD 40 MG DELAYED RELEASE TAB PO SCH (09:00)
[2016-07-14] MEDS: guaiFENesin E.R. 600 MG TAB PO SCH ×2 (09:00→20:33)
[2016-07-14] MEDS: LACTOBACILLUS ACIDOPHILUS TAB PO SCH ×3 (09:00→17:09)
[2016-07-14] MEDS: FLUCONAZOLE 100 MG TAB PO SCH (09:00)
[2016-07-14] MEDS: FUROSEMIDE 40 MG TAB PO SCH (09:00)
[2016-07-14] MEDS: SODIUM CHLORIDE 0.9% FLUSH 5 ML FLUSH FLUSH SCH ×2 (09:00→20:30)
[2016-07-14] MEDS: ASPIRIN 325 MG TAB PO SCH (09:00)
[2016-07-14] MEDS: SERTRALINE HCL 50 MG TAB PO SCH (09:00)
[2016-07-14] MEDS: CEFEPIME INJ 2,000 MG in SODIUM CHLORIDE 0.9% INJ 100 ML IV SCH (10:00)
--- NOTE | 2016-07-14 10:27 | HHI.PR ---
Subjective Remarks This is a pleasant 81 y/o male who has Acute Renal Injury, UTI and Bradycardia, came with weakness, received IV fluids, Hypertension, DM II, CAD status post CABG, CHF, CVA, Bladder cancer, Anemia, Peripheral neuropathy, CKD III, Osteoporosis, Depression, Gout, Patient stable improving Renal condition improving Creatinine 3.04 from 5.07 on admission, his Urine Culture growing Tata [place] but because the patient is debilitated and with chronic condition. has Chronic Respiratory Insufficiency, he has Chronic Diastolic and systolic heart failure stable, During the night the patient had Respiratory insufficiency was placed on BiPAP, today I had a meeting with Patient, his Mrs. donita Sanon and with business analyst project manager and nurse Miss Kang, as per his the patient is able to take his own decisions and prefer to discuss first with autism motor specialist to be able to be explained his options, he wants to go home probable on Hospice care. Objective Vital Signs Date Time Temp Pulse Resp B/P Pulse Ox O2 Delivery O2 Flow Rate FiO2 07/14/16 08:35 97.4 101 21 141/71 100 07/14/16 08:15 99 Venturi Mask 6.00 40 07/14/16 08:12 100 07/14/16 04:04 97 35 07/14/16 04:00 98.1 107 22 148/75 98 07/14/16 00:30 96 30 07/14/16 00:20 97.7 120 24 155/86 95 07/13/16 23:45 98.3 140 24 172/74 95 07/13/16 21:00 Nasal Cannula 6.00 07/13/16 20:20 97.3 110 21 183/80 96 07/13/16 20:00 111 07/13/16 17:38 96 Nasal Cannula 6.00 07/13/16 16:00 96.7 112 20 175/87 96 07/13/16 12:00 97.2 108 20 156/80 98 07/13/16 10:30 96 Simple Mask 6.00 I/O 07/13/16 07/13/16 07/13/16 07/14/16 07/14/16 07/14/16 07:00 15:00 23:00 07:00 15:00 23:00 Intake Total 220 ml 120 ml 500 ml 0 ml Output Total 500 ml 850 ml 0 ml 900 ml Balance -280 ml -730 ml 500 ml -900 ml Intake Oral 220 ml 120 ml 500 ml 0 ml Output Urine Total 500 ml 850 ml 0 ml 900 ml # Bowel Movements 0 2 1 0 Result Diagram: 07/12/16 0849 Imaging Last Impressions Chest X-Ray 07/13/16 0000 Signed Impressions: Service Date/Time: Wednesday, July 13, 2016 23:52 - CONCLUSION: Plain film findings characteristic of worsening CHF with bilateral pleural effusions and concomitant atelectatic changes. Michele Pineda MD Renal Ultrasound 07/08/16 0000 Signed Impressions: Service Date/Time: Friday, July 08, 2016 15:25 - CONCLUSION: There are small right and left pleural effusions. There is no mass or hydronephrosis. Piter Ta MD FACR Lower Extremity Ultrasound 07/08/16 0000 Signed Impressions: Service Date/Time: Friday, July 08, 2016 05:49 - CONCLUSION: Normal examination. Larry Mccullough MD Procedures No procedures performed. Other Results Laboratory Tests Test 07/10/16 07/11/16 07/12/16 07/13/16 14:02 12:25 08:49 18:50 B-Type Natriuretic Peptide 3175 PG/ML Iron Level 21 MCG/DL Total Iron Binding Capacity 245 MCG/DL Percent Iron Saturation 8.6 % Sodium Level 139 MEQ/L Potassium Level 4.0 MEQ/L Chloride Level 103 MEQ/L Carbon Dioxide Level 26.0 MEQ/L Anion Gap 10 MEQ/L Blood Urea Nitrogen 60 MG/DL Creatinine 1.72 MG/DL Estimat Glomerular Filtration 38 ML/MIN Rate Random Glucose 98 MG/DL Calcium Level 9.0 MG/DL Phosphorus Level 3.2 MG/DL Albumin 3.0 GM/DL Stool C. difficile Toxin (PCR) NEGATIVE Stl C. difficile Toxin PRESUMPTIVE Epiderm 027 NEGATIVE Test 07/14/16 03:08 Blood Gas Puncture Site LT RADIAL Blood Gas Patient Temperature 98.6 Blood Gas HCO3 24 mmol/L Blood Gas Base Excess -0.1 mmol/L Blood Gas Oxygen Saturation 91 % Arterial Blood pH 7.39 Arterial Blood Partial 41 mmHg Pressure CO2 Arterial Blood Partial 70 mmHg Pressure O2 Arterial Blood Oxygen Content 11.2 Vol % Arterial Blood 1.6 % Carboxyhemoglobin Arterial Blood Methemoglobin 1.0 % Blood Gas Hemoglobin 8.7 G/DL Oxygen Delivery Device BiPAP Blood Gas Ventilator Setting IPAP10/[id number] Blood Gas Inspired Oxygen 30 % Objective Remarks GENERAL: Obesity, Mild to moderate respiratory distress. SKIN: Superficial ecchymosis HEAD: Atraumatic. Normocephalic. No temporal or scalp tenderness. EYES: . No scleral icterus. No injection or drainage. ENT: Nose without bleeding, purulent drainage or septal hematoma. . Airway patent. NECK: Trachea midline. No JVD Supple, nontender, no meningeal signs. CARDIOVASCULAR: Regular rate and rhythm without murmurs, gallops, or rubs. RESPIRATORY: Decreased breath sounds bilateral and no wheezing no crackles. GASTROINTESTINAL: Abdomen soft, non-tender, nondistended. No guarding. : Patient has Rosales catheter. placed Rosales cath by Urology specialist. MUSCULOSKELETAL: Extremities without clubbing, cyanosis, or edema. Right lower extremity much bigger than the left. Bilateral pitting edema about 2+. NEUROLOGICAL: Awake and alert.Motor and sensory grossly within normal limits. Normal speech. Medications and IVs Current Medications Medications (Trade) Dose Ordered Sig/Bucky Route Start Time Stop Time Status Last Admin (NS Flush) 2 ml UNSCH PRN FLUSH 07/07/16 20:15 07/10/16 09:45 (NS Flush) 2 ml BID FLUSH 07/07/16 21:00 07/14/16 09:00 (Heparin Inj) 5,000 units Q8H SQ 07/08/16 06:00 07/14/16 12:31 (Narcan Inj) 0.4 mg UNSCH PRN IV 07/07/16 20:15 (Aspirin) 325 mg DAILY PO 07/08/16 09:00 07/14/16 09:00 (Levsin) 0.125 mg Q4H PRN PO 07/08/16 08:15 (Tears Naturale Opth Soln) 1 drop TID PRN EACH EYE 07/08/16 08:15 (Zoloft) 50 mg DAILY PO 07/08/16 09:00 07/14/16 09:00 (D50w (Vial) Inj) 25 ml UNSCH PRN IV PUSH 07/08/16 08:15 (Glucagon Inj) 1 mg UNSCH PRN OTHER 07/08/16 08:15 (Protonix) 40 mg DAILY PO 07/08/16 09:00 07/14/16 09:00 Lactobacillus Acidophilus 1 tab 1 tab TID PO 07/08/16 09:00 07/14/16 12:29 (Maxipime Inj/NS Inj) 100 ml @ 200 mls/hr Q24H IV 07/09/16 10:00 07/14/16 10:00 (Tylenol) 650 mg Q4H PRN PO 07/08/16 13:00 07/10/16 02:42 (Tylenol-Codeine #3) 1 tab Q4H PRN PO 07/08/16 13:00 07/12/16 04:20 (Mucinex Er) 600 mg BID PO 07/08/16 21:00 07/14/16 09:00 (Diflucan) 100 mg DAILY PO 07/10/16 09:00 07/14/16 09:00 (Lasix Inj) 40 mg Q8HR IV PUSH 07/14/16 14:00 07/15/16 12:00 Hold A/P Problem List: (1) Weakness ICD Code: R53.1 (2) Acute on chronic kidney disease, stage 3 ICD Code: N18.3 (3) UTI (urinary tract infection) ICD Code: N39.0 (4) CHF (congestive heart failure) ICD Code: I50.9 (5) HTN (hypertension) ICD Code: I10 Assessment and Plan 1. Generalized Weakness secondary to Deconditioning multiple admissions to the Hospital, follows at [facility], recurrent UTI, chronic deconditioning, will need Composite Laminator, OT/PT for discharge to Rehab. the patient prefer going home on HHC or Hospice asked for Palliative Care to decide his options. 2. UTI on Maxipime continue present care and also today Urine Culture with Tata Glabrata he has chronic debilitating disease I will start treatment with Fluconazole renally adjusted. to 100 mg by mouth daily for 14 days. 3. Electrolyte derangement Improved nephrology specialist following. 4. Bradycardia stable. 5. Acute Kidney Injury due to Sepsis and Urinary Tract infection, the patient has Poor renal function, followed by Nephrology specialist, followed by Doctor Valentin as outpatient, recommended to continue Lasix 40 mg BID, He has Urinary retention and Rosales cath is on. clear for discharge by Nephrology specialist. 6. Bladder cancer by history. 7. Hypertension controlled. 8. CVA by history 9. Depression stable 10. Anemia on Epogen by Nephrology specialist. 11. Osteoporosis. 12. CHF with mild Exacerbation sever Pulmonary hypertension, as Chronic Combined Systolic and Diastolic Heart failure, Systolic function is mildly reduced with EF 45-50%, Mild to Moderate Mitral regurgitation Moderate Tricuspid regurgitation, Pulmonary artery with Moderate to Severe Pulmonary Hypertension. 13. Hyponatremia correcting by Nephrology specialist recommended Samsca x 1 14. Urinary Retention related to Urethral stricture formation which is now been dilated, by Urology specialist recommended to leave Rosales cath indwelling for at least one week, follow with his primary Urology specialist Doctor Pablo by Doctor Jeison Tai. 15. Chronic Respiratory Insufficiency on chronic Oxygen management worsened during the night was on BiPAP DVT prophylaxison heparin. GI prophylaxis on pantoprazole. No changes to anterior assessment Discussed with patient, his Mrs. Donita Sanon, Composite Laminator and nurse Pearl he wants to get consult with Palliative care to take his decision, as per his the decision will be taken by the patient using her own words she say "I don't care" Doppler US of LE done- negative for DVT Discharge Planning Cleared by Nephrology specialist going home the patient asked for Palliative care to take decision Problem Qualifiers (1) UTI (urinary tract infection): Qualified Code: N30.01 - Acute cystitis with hematuria Satnam Sim MD Jul 14, 2016 10:27
[2016-07-14] MEDS ORDERED: FUROSEMIDE 40 MG/4 ML VIAL IV PUSH SCH (14:00)
[2016-07-14] MEDS: ACETAMINOPHEN/CODEINE 300 MG/30 MG TAB PO PRN (17:10)
[2016-07-14] MEDS ORDERED: traMADol/ACETAMINOPHEN 37.5/325 1 TAB PO PRN (18:00)
[2016-07-15] VITALS: BP 140/65; PULSE 106; RESP 20; TEMP 98.9; O2SAT 96
[2016-07-15 04:00] VITALS: BP 135/97; PULSE 104; RESP 20; TEMP 98.4; O2SAT 96
[2016-07-15] MEDS: HEPARIN SODIUM - SQ 10,000 UNITS/ML VIAL SQ SCH ×2 (05:39→12:27)
[2016-07-15] MEDS: INSULIN NovoLIN REGULAR SUPPLEMENTAL SCALE SQ SCH ×2 (05:58→12:27)
--- NOTE | 2016-07-15 07:44 | HHI.PR ---
Subjective Remarks This is a pleasant 81 y/o male who has Acute Renal Injury, UTI and Bradycardia, came with weakness, received IV fluids, Hypertension, DM II, CAD status post CABG, CHF, CVA, Bladder cancer, Anemia, Peripheral neuropathy, CKD III, Osteoporosis, Depression, Gout, Patient stable improving Renal condition improving Creatinine 3.04 from 5.07 on admission, his Urine Culture growing Tata Gl[place] but because the patient is debilitated and with chronic condition. has Chronic Respiratory Insufficiency, he has Chronic Diastolic and systolic heart failure stable, During the night the patient had Respiratory insufficiency was placed on BiPAP, today At this time discussed with nurse in the room Miss Javier also with floral department specialist in the room Miss Kuhn awaiting for final recommendations for discharge. Objective Vital Signs Date Time Temp Pulse Resp B/P Pulse Ox O2 Delivery O2 Flow Rate FiO2 07/15/16 04:00 98.4 104 20 135/97 96 07/15/16 00:00 98.9 106 20 140/65 96 07/14/16 21:00 Nasal Cannula 4.00 07/14/16 20:35 97.4 105 22 176/81 97 07/14/16 20:05 94 4.00 07/14/16 20:00 103 07/14/16 16:09 97.6 111 23 149/78 97 07/14/16 12:14 97.3 108 23 136/74 98 07/14/16 08:35 97.4 101 21 141/71 100 07/14/16 08:15 99 Venturi Mask 6.00 40 07/14/16 08:12 100 07/14/16 08:00 99 Bi-Pap 4.00 I/O 07/14/16 07/14/16 07/14/16 07/15/16 07/15/16 07/15/16 07:00 15:00 23:00 07:00 15:00 23:00 Intake Total 0 ml 240 ml 200 ml 480 ml Output Total 900 ml 500 ml 350 ml 250 ml Balance -900 ml -260 ml -150 ml 230 ml Intake Oral 0 ml 240 ml 200 ml 480 ml Output Urine Total 900 ml 500 ml 350 ml 250 ml # Bowel Movements 0 2 2 Result Diagram: 07/12/16 0849 Imaging Last Impressions Chest X-Ray 07/13/16 0000 Signed Impressions: Service Date/Time: Wednesday, July 13, 2016 23:52 - CONCLUSION: Plain film findings characteristic of worsening CHF with bilateral pleural effusions and concomitant atelectatic changes. Michele Pineda MD Renal Ultrasound 07/08/16 0000 Signed Impressions: Service Date/Time: Friday, July 08, 2016 15:25 - CONCLUSION: There are small right and left pleural effusions. There is no mass or hydronephrosis. Piter Ta MD FACR Lower Extremity Ultrasound 07/08/16 0000 Signed Impressions: Service Date/Time: Friday, July 08, 2016 05:49 - CONCLUSION: Normal examination. Larry Mccullough MD Procedures No procedures performed. Other Results Laboratory Tests Test 07/11/16 07/12/16 07/13/16 07/14/16 12:25 08:49 18:50 03:08 Iron Level 21 MCG/DL Total Iron Binding Capacity 245 MCG/DL Percent Iron Saturation 8.6 % Sodium Level 139 MEQ/L Potassium Level 4.0 MEQ/L Chloride Level 103 MEQ/L Carbon Dioxide Level 26.0 MEQ/L Anion Gap 10 MEQ/L Blood Urea Nitrogen 60 MG/DL Creatinine 1.72 MG/DL Estimat Glomerular Filtration 38 ML/MIN Rate Random Glucose 98 MG/DL Calcium Level 9.0 MG/DL Phosphorus Level 3.2 MG/DL Albumin 3.0 GM/DL Stool C. difficile Toxin (PCR) NEGATIVE Stl C. difficile Toxin PRESUMPTIVE Epiderm 027 NEGATIVE Blood Gas Puncture Site LT RADIAL Blood Gas Patient Temperature 98.6 Blood Gas HCO3 24 mmol/L Blood Gas Base Excess -0.1 mmol/L Blood Gas Oxygen Saturation 91 % Arterial Blood pH 7.39 Arterial Blood Partial 41 mmHg Pressure CO2 Arterial Blood Partial 70 mmHg Pressure O2 Arterial Blood Oxygen Content 11.2 Vol % Arterial Blood 1.6 % Carboxyhemoglobin Arterial Blood Methemoglobin 1.0 % Blood Gas Hemoglobin 8.7 G/DL Oxygen Delivery Device BiPAP Blood Gas Ventilator Setting IPAP10/EPAP5 Blood Gas Inspired Oxygen 30 % Objective Remarks GENERAL: Obesity, Mild to moderate respiratory distress. SKIN: Superficial ecchymosis HEAD: Atraumatic. Normocephalic. No temporal or scalp tenderness. EYES: . No scleral icterus. No injection or drainage. ENT: Nose without bleeding, purulent drainage or septal hematoma. . Airway patent. NECK: Trachea midline. No JVD Supple, nontender, no meningeal signs. CARDIOVASCULAR: Regular rate and rhythm without murmurs, gallops, or rubs. RESPIRATORY: Decreased breath sounds bilateral, no wheezing but has Crackles on left base. GASTROINTESTINAL: Abdomen soft, non-tender, nondistended. No guarding. : Patient has Rosales catheter. placed Rosales cath by Urology specialist. MUSCULOSKELETAL: Extremities without clubbing, cyanosis, or edema. Right lower extremity much bigger than the left. Bilateral pitting edema about 2+. NEUROLOGICAL: Awake and alert.Motor and sensory grossly within normal limits. Normal speech. Medications and IVs Current Medications Medications (Trade) Dose Ordered Sig/Bucky Route Start Time Stop Time Status Last Admin (NS Flush) 2 ml UNSCH PRN FLUSH 07/07/16 20:15 07/10/16 09:45 (NS Flush) 2 ml BID FLUSH 07/07/16 21:00 07/14/16 20:30 (Heparin Inj) 5,000 units Q8H SQ 07/08/16 06:00 07/15/16 05:39 (Narcan Inj) 0.4 mg UNSCH PRN IV 07/07/16 20:15 (Aspirin) 325 mg DAILY PO 07/08/16 09:00 07/14/16 09:00 (Levsin) 0.125 mg Q4H PRN PO 07/08/16 08:15 (Tears Naturale Opth Soln) 1 drop TID PRN EACH EYE 07/08/16 08:15 (Zoloft) 50 mg DAILY PO 07/08/16 09:00 07/14/16 09:00 (D50w (Vial) Inj) 25 ml UNSCH PRN IV PUSH 07/08/16 08:15 (Glucagon Inj) 1 mg UNSCH PRN OTHER 07/08/16 08:15 (Protonix) 40 mg DAILY PO 07/08/16 09:00 07/14/16 09:00 Lactobacillus Acidophilus 1 tab 1 tab TID PO 07/08/16 09:00 07/14/16 17:09 (Maxipime Inj/NS Inj) 100 ml @ 200 mls/hr Q24H IV 07/09/16 10:00 07/14/16 10:00 (Tylenol) 650 mg Q4H PRN PO 07/08/16 13:00 07/10/16 02:42 (Tylenol-Codeine #3) 1 tab Q4H PRN PO 07/08/16 13:00 07/14/16 17:10 (Mucinex Er) 600 mg BID PO 07/08/16 21:00 07/14/16 20:33 (Diflucan) 100 mg DAILY PO 07/10/16 09:00 07/14/16 09:00 (Lasix Inj) 40 mg Q8HR IV PUSH 07/14/16 14:00 07/15/16 12:00 Hold (Ultracet 37.5-325 Mg) 1 tab Q6H PRN PO 07/14/16 18:00 A/P Problem List: (1) Weakness ICD Code: R53.1 (2) Acute on chronic kidney disease, stage 3 ICD Code: N18.3 (3) UTI (urinary tract infection) ICD Code: N39.0 (4) CHF (congestive heart failure) ICD Code: I50.9 (5) HTN (hypertension) ICD Code: I10 Assessment and Plan 1. Generalized Weakness secondary to Deconditioning multiple admissions to the Hospital, follows at [facility], recurrent UTI, chronic deconditioning, will need Vice [employer] Engineering, OT/PT for discharge to Rehab. the patient prefer going home on HHC or Hospice asked for Palliative Care at this time has a consult with Palliative care will follow recommendations. 2. UTI on Maxipime continue present care and also today Urine Culture with [place]ata Gl[place] he has chronic debilitating disease I will start treatment with Fluconazole renally adjusted. to 100 mg by mouth daily for 14 days. 3. Electrolyte derangement Improved 4. Bradycardia stable. 5. Acute Kidney Injury due to Sepsis and Urinary Tract infection, the patient has Poor renal function, followed by Nephrology specialist, followed by Doctor Valentin as outpatient, will continue today Lasix 40 mg IV BID, cleared by Nephrology specialist for discharge. 6. Bladder cancer by history. 7. Hypertension controlled. 8. CVA by history 9. Depression stable 10. Anemia on Epogen by Nephrology specialist. 11. Osteoporosis. 12. CHF with mild Exacerbation sever Pulmonary hypertension, as Chronic Combined Systolic and Diastolic Heart failure, Systolic function is mildly reduced with EF 45-50%, Mild to Moderate Mitral regurgitation Moderate Tricuspid regurgitation, Pulmonary artery with Moderate to Severe Pulmonary Hypertension. giving diuretics. 13. Hyponatremia correcting by Nephrology specialist recommended Samsca x 1 14. Urinary Retention related to Urethral stricture formation which is now been dilated, by Urology specialist recommended to leave Rosales cath indwelling for at least one week, follow with his primary Urology specialist Doctor Pablo by Doctor Jeison Tai. 15. Chronic Respiratory Insufficiency on chronic Oxygen management at this time on BiPAP due to Insufficiency. DVT prophylaxison heparin. GI prophylaxis on pantoprazole. No changes to anterior assessment Discussed with patient, Nurse Miss Javier and floral department specialist Miss Kuhn his Mrs. Donita Sanon will be contacted later by floral department specialist. I already had a meeting with her yesterday but will notify discharge and patient's decision. Doppler US of LE done- negative for DVT Discharge Planning Cleared by Nephrology specialist going home the patient asked for Palliative care to take decision Problem Qualifiers (1) UTI (urinary tract infection): Qualified Code: N30.01 - Acute cystitis with hematuria Satnam Sim MD Jul 15, 2016 07:43 Qualified Code: N30.01 - Acute cystitis with hematuria Satnam Sim MD Jul 15, 2016 07:43
[2016-07-15 08:13] VITALS: BP 160/84; PULSE 100; RESP 24; TEMP 95.4; O2SAT 95; O2SAT 96
[2016-07-15 08:15] LABS: BICARBONATE 23.7 MEQ/L (21.0-32.0); POTASSIUM 4.1 MEQ/L (3.5-5.1)
[2016-07-15] MEDS: SERTRALINE HCL 50 MG TAB PO SCH (08:54)
[2016-07-15] MEDS: CEFEPIME INJ 2,000 MG in SODIUM CHLORIDE 0.9% INJ 100 ML IV SCH (08:54)
[2016-07-15] MEDS: PANTOPRAZOLE SOD 40 MG DELAYED RELEASE TAB PO SCH (08:54)
[2016-07-15] MEDS: FLUCONAZOLE 100 MG TAB PO SCH (08:54)
[2016-07-15] MEDS: guaiFENesin E.R. 600 MG TAB PO SCH (08:54)
[2016-07-15] MEDS: LACTOBACILLUS ACIDOPHILUS TAB PO SCH ×2 (08:54→12:26)
[2016-07-15] MEDS: ASPIRIN 325 MG TAB PO SCH (08:54)
[2016-07-15] MEDS: SODIUM CHLORIDE 0.9% FLUSH 5 ML FLUSH FLUSH SCH (08:55)
--- NOTE | 2016-07-15 10:45 | PD.CONS ---
Consult Service Palliative Care Consult Requested By Dr. Najera . Primary Care Physician [facility] . Reason for Consultation a. To assist with evaluation and management of symptoms including: Dyspnea, pain b. To assist medical decision maker(s) with: better understanding of current medical conditions; weighing benefits/burdens of medical treatment options; making medical treatment decisions. . HPI History of Present Illness Mr. Madden is an 81 year old male patient who was sent to [place] ED by the [place] physicians on 07/07/16 to be evaluated for sepsis. Per patient, he had not been feeling well for a few days. While at the [place] for a well check up he became SOB. On exam the patient was found to hypotensive, intermittently becoming tachycardic and then bradycardic per notes.. The patient reported he felt diaphoretic with significant shortness of breath while being transported to the ED via EMS. Patient also reported having increased fatigue and progressively worsening weakness over the past 6 weeks. Of note, the patient has a significant medical history that includes hypertension, DM, CAD s/p CABG, previous OK, hyperlipidemia, CHF, CVA, GERD, history of bladder cancer s/p excisions and chemotherapy, anemia, peripheral neuropathy, CKD, osteoporosis, depression and gout. Diagnostic findings in the ED: * Vital signs: Pulse 45, respirations 14, BP 110/53, oxygen saturation 99% on 4 L via nasal cannula, oral temperature 98.5 * WBC: 10.5, hemoglobin 8.8, hematocrit 27.3, platelets 156, neutrophils 54.6% * Sodium: 129, potassium 6.2, chloride 91, carbon dioxide 26.4, glucose 115 calcium 8.5, magnesium 2.5 * BUN: 86, creatinine 5.07, GFR 11 * The total bilirubin: 0.2, AST 18, ALT 15, alkaline phosphatase 79 * The total creatine kinase: 1:30, CKMB 3.8 * Lactic acid: 1.4 * Troponin 0.04 * Total protein: 6.8, albumin 3.2 * Lipase: 78 * PT: 13.1, INR 1.2, APTT 28.7 * Urinalysis with elevated protein, occult blood, leukocyte esterase, RBC, bacteria and yeast-culture indicated * Urine culture: + Tata glabrata * Blood cultures negative * Nasal aspirate negative for flu A and B antigen * Chest x-ray: showing volume overload and CHF * EKG: Sinus bradycardia at 44 bpm, QT/QTC 502/365, first-degree AV block Patient's creatinine is 5.07 in the ED, previous creatinine on July 23, 2015 was 2.96. Patient received 2L NS bolus and started on IV antibiotics while in the ED. Patient was subsequently admitted for further evaluation/medical management of UTI, acute on chronic renal failure, hyperkalemia and hyponatremia. Nephrology was consulted. Doppler US of LE was negative for DVT. Creatinine decreased to 4.58, from 5.07 overnight. Patient is non-oliguric. His potassium was elevated at 6.2, decreased status post receiving insulin, bicarbonate, dextrose and Kayexalate. Per nephrology, ZAN likely acute tubular necrosis secondary to bradycardia, hypotension and possible sepsis. Kidney/ renal/bladder ultrasound on 07/08/16 showed a small bilateral pleural effusions; no mass or hydronephrosis. Patient follows Dr. Valentin outpatient for chronic renal failure. Urine culture: + Tata glabrata; IV antibiotic changed to Cefepime. Patient has chronic diastolic and systolic heart failure. Severe pulmonary hypertension. BNP on 07/11/16 of 3175. An echocardiogram showed the left ventricle systolic function was mildly reduced. EF was in the range of 45% to 50%. Mild to moderate mitral valve regurgitation. Moderate tricuspid valve regurgitation. Patient developed some dysuria and urinary frequency. After several unsuccessful attempts to place the patient's Rosales catheter, urology was consulted. Upon Dr. Tai's evaluation the patient reported he was under the care of Dr. Shah for bladder cancer and his last cystoscopic evaluation showed no evidence of recurrent disease. Will follow-up with Dr. Shah outpatient. A follow-up chest x-ray on 07/13/16 significant for worsening CHF and bilateral pleural effusions with concomitant atelectatic changes. Patient has chronic respiratory insufficiency on supplemental home oxygen via nasal cannula, intermittently on BiPAP. Palliative Care was consulted to assist with symptom management and to discuss with the patient/family the benefits and burdens of his current illnesses and the options regarding future care. . . Function/Cognitive Trajectory Patient is an 81-year-old male with a complex medical history including respiratory insufficiency, chronic kidney disease, CHF, extensive cardiac disease. He is currently hospitalized with acute on chronic kidney failure likely secondary to UTI and sepsis. Per report, the patient has had has had multiple hospital admissions at [facility]. He is intermittently confused with generalized weakness secondary to deconditioning, he has refused/ failed rehab previously. . . Review of Systems ROS Limitations: Clinical Condition, Altered Mental Status, Hearing Impaired, Speech Impaired (secondary to dyspnea) Constitutional: COMPLAINS OF: Fatigue, Pain, Generalized weakness (secondary to deconditioning) Eyes: DENIES: Blurred vision Ears, nose, mouth, throat: DENIES: Epistaxis Respiratory: COMPLAINS OF: Shortness of breath (on BiPAP) Cardiovascular: COMPLAINS OF: Dyspnea on Exertion, Lower Extremity Edema, DENIES: Chest pain Gastrointestinal: DENIES: Abdominal pain, Black stools, Bloody stools Genitourinary: COMPLAINS OF: Urinary frequency, Dysuria Musculoskeletal: COMPLAINS OF: Decreased range of motion Hematologic/Lymphatics: COMPLAINS OF: Bruising Neurologic: COMPLAINS OF: Abnormal gait, Localized weakness Psychiatric: COMPLAINS OF: Anxiety, Confusion Past Family Social History Coded Allergies: Metformin (Verified Allergy, Severe, DIARRHEA, 04/20/15) Morphine (Verified Allergy, Severe, 04/20/15) Past Medical History Hypertension Diabetes CADstatus post CABG x 4 vessels H/O myocardial infarction Hyperlipidemia CHFlatest echo in April 2015 CVA GERD Bladder cancer s/p excisions and chemotherapy Anemia Peripheral neuropathy CKDstage III Osteoporosis Depression Gout . Past Surgical History Bladder cancer excisions Appendectomy Cataract surgery bilaterally CABG Left knee surgery Neck surgery . Reported Medications Sertraline (Sertraline HCl) 50 Mg Tab 50 Mg PO DAILY Gabapentin 300 Mg Cap 300 Mg PO TID Lasix (Furosemide) 80 Mg Tab 80 Mg PO BID Aspirin 325 Mg Tab 325 Mg PO DAILY Ferrous Gluconate 325 Mg Tab 325 Mg PO DAILY Duoneb (Ipratropium-Albuterol Neb) 0.5-2.5 Mg/3 Ml Neb 1 Nebule INH Q6HR NEB Bengay Greaseless Topical (Menthol-Methyl Salicylate Topical) 10-15 % Cream 1 Applic TOP TID PRN Tylenol-Codeine #3 (Acetaminophen-Codeine) 300-30 mg Tab 1 Tab PO Q4H PRN Lisinopril 5 Mg Tab 5 Mg PO DAILY Novolin 70-30 Inj (Insulin Human Isoph/Insulin Regular) 1,000 Unit/10 Ml Vial 65 Units SQ BID Terazosin (Terazosin HCl) 1 Mg Cap 1 Mg PO HS Metoprolol Tartrate 50 Mg Tab 50 Mg PO BID Allopurinol 300 Mg Tab 300 Mg PO DAILY Pravastatin 40 Mg Tab 40 Mg PO HS Aquaphor (Emollient) 1 Oin Oin 1 Applic TOP BID Isosorbide Dinitrate 10 Mg Tab 10 Mg PO TID Hyoscyamine (Hyoscyamine Sulfate) 0.125 Mg Tab 0.125 Mg PO Q4H PRN Artificial Tears Opth Drops (Polyvinyl Alcohol) 1.4% Soln 1 Drop EACH EYE TID PRN . Current Medications Medications (Trade) Dose Ordered Sig/Bucky Route Start Time Stop Time Status Last Admin (NS Flush) 2 ml UNSCH PRN FLUSH 07/07/16 20:15 07/10/16 09:45 (NS Flush) 2 ml BID FLUSH 07/07/16 21:00 07/15/16 08:55 (Heparin Inj) 5,000 units Q8H SQ 07/08/16 06:00 07/15/16 05:39 (Narcan Inj) 0.4 mg UNSCH PRN IV 07/07/16 20:15 (Aspirin) 325 mg DAILY PO 07/08/16 09:00 07/15/16 08:54 (Levsin) 0.125 mg Q4H PRN PO 07/08/16 08:15 (Tears Naturale Opth Soln) 1 drop TID PRN EACH EYE 07/08/16 08:15 (Zoloft) 50 mg DAILY PO 07/08/16 09:00 07/15/16 08:54 (D50w (Vial) Inj) 25 ml UNSCH PRN IV PUSH 07/08/16 08:15 (Glucagon Inj) 1 mg UNSCH PRN OTHER 07/08/16 08:15 (Protonix) 40 mg DAILY PO 07/08/16 09:00 07/15/16 08:54 Lactobacillus Acidophilus 1 tab 1 tab TID PO 07/08/16 09:00 07/15/16 08:54 (Maxipime Inj/NS Inj) 100 ml @ 200 mls/hr Q24H IV 07/09/16 10:00 07/15/16 08:54 (Tylenol) 650 mg Q4H PRN PO 07/08/16 13:00 07/10/16 02:42 (Tylenol-Codeine #3) 1 tab Q4H PRN PO 07/08/16 13:00 07/14/16 17:10 (Mucinex Er) 600 mg BID PO 07/08/16 21:00 07/15/16 08:54 (Diflucan) 100 mg DAILY PO 07/10/16 09:00 07/15/16 08:54 (Lasix Inj) 40 mg Q8HR IV PUSH 07/14/16 14:00 07/15/16 12:00 Hold (Ultracet 37.5-325 Mg) 1 tab Q6H PRN PO 07/14/16 18:00 . Family History Father was an alcoholic. Per chart, there was family history of OK and cancers . Substance Use Tobacco: Previous smoker, quit 30+ years ago Alcohol: Rarely uses alcohol Prescription med abuse: None known Illicits: None known . Psychosocial History Patient was born in [place]. He has one sister. 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 Patient stayed in the [employer] for approximately 3 years and received an honorable discharge. He completed 2 years of college. He worked in construction management. The patient was , but his . He has 2 children. Now to [place] for approximately 21 years. . Spiritual/Cultural Factors Church catrina . Today's verbally stated goals: Patient would like to consider transitioning to home with [facility] for hosp[facility]. . Family/friends goals: Patient's verbalizes that she is supportive of the patient's medical treatment goals. However, patient is intermittently confused. . Ethical and Legal Issues Per [place] statutes, in the absence of written advanced directives healthcare proxy decision-making falls to the patient's Donita. . Physical Exam Vital Signs Date Time Temp Pulse Resp B/P Pulse Ox O2 Delivery O2 Flow Rate FiO2 07/15/16 08:13 95 Nasal Cannula 2.00 07/15/16 08:13 95.4 100 24 160/84 96 07/15/16 04:00 98.4 104 20 135/97 96 07/15/16 00:00 98.9 106 20 140/65 96 07/14/16 21:00 Nasal Cannula 4.00 07/14/16 20:35 97.4 105 22 176/81 97 07/14/16 20:05 94 4.00 07/14/16 20:00 103 07/14/16 16:09 97.6 111 23 149/78 97 07/14/16 12:14 97.3 108 23 136/74 98 . 07/14/16 07/15/16 19:00 07:00 Intake Total 240 ml 680 ml Output Total 500 ml 600 ml Balance -260 ml 80 ml Intake Oral 240 ml 680 ml Output Urine Total 500 ml 600 ml # Bowel Movements 2 2 . Exam CONSTITUTIONAL/GENERAL: This is an adequately nourished, elderly male patient, in moderate amount of respiratory distress TUBES/LINES/DRAINS: PIV, Rosales SKIN: No jaundice, rashes, or lesions. Ecchymoses on upper extremities. No wounds seen anteriorly. Skin temperature appropriate. Not diaphoretic. HEAD: Atraumatic. Normocephalic. EYES: Pupils equal and round and reactive. Extraocular motions intact. No scleral icterus. No injection or drainage. Fundi not examined. ENT: Hearing grossly normal. Nose without bleeding or purulent drainage. NECK: Trachea midline. Supple, nontender. No palpable thyroid enlargement or nodularity. CARDIOVASCULAR: Tachycardic without murmurs, gallops, or rubs. No JVD. Peripheral pulses symmetric. RESPIRATORY/CHEST: Respirations slightly labored, on BiPAP . Breath sounds diminished bilaterally in bases. No wheezes, rales, or rhonchi. GASTROINTESTINAL: Abdomen soft, non-tender, nondistended. No hepato-splenomegaly , or palpable masses. No guarding. Bowel sounds present. GENITOURINARY: Without palpable bladder distension. Rosales catheter in place. MUSCULOSKELETAL: Extremities without clubbing, cyanosis. Bilateral pedal edema 2+ LYMPHATICS: No palpable cervical or supraclavicular adenopathy. NEUROLOGICAL: Awake, oriented to person place and time. Intermittently confused. Follows commands. Able to verbalize needs. Moves all extremities. PSYCHIATRIC: Depression stabilized. no apparent hallucinations or other psychotic thought process. . Diagnostic Tests Laboratory Laboratory Tests Test 07/13/16 07/14/16 07/15/16 18:50 03:08 07:10 Stool C. difficile Toxin (PCR) NEGATIVE (NEGATIVE) Stl C. difficile Toxin PRESUMPTIVE Epiderm 027 NEGATIVE (NEGATIVE) Blood Gas Puncture Site LT RADIAL Blood Gas Patient Temperature 98.6 Blood Gas HCO3 24 mmol/L (22-26) Blood Gas Base Excess -0.1 mmol/L (-2-2) Blood Gas Oxygen Saturation 91 % (90-100) Arterial Blood pH 7.39 (7.380-7.420) Arterial Blood Partial 41 mmHg (38-42) Pressure CO2 Arterial Blood Partial 70 mmHg Pressure O2 (61-120) Arterial Blood Oxygen Content 11.2 Vol % (12.0-20.0) Arterial Blood 1.6 % (0-4) Carboxyhemoglobin Arterial Blood Methemoglobin 1.0 % (0-2) Blood Gas Hemoglobin 8.7 G/DL (12.0-16.0) Oxygen Delivery Device BiPAP Blood Gas Ventilator Setting IPAP10/EPAP5 Blood Gas Inspired Oxygen 30 % Sodium Level 138 MEQ/L (136-145) Potassium Level 4.1 MEQ/L (3.5-5.1) Chloride Level 101 MEQ/L (98-107) Carbon Dioxide Level 23.7 MEQ/L (21.0-32.0) Anion Gap 13 MEQ/L (5-15) Blood Urea Nitrogen 59 MG/DL (7-18) Creatinine 1.33 MG/DL (0.60-1.30) Estimat Glomerular Filtration 52 ML/MIN (>89) Rate Random Glucose 117 MG/DL (74-106) Calcium Level 9.3 MG/DL (8.5-10.1) . Result Diagram: 07/15/16 0710 Microbiology Microbiology Date/Time Procedure Status Source Growth 07/13/16 18:50 Stool Occult Blood (ROSALINO) - Final Complete Stool Stool HEMOCCULT NEGATIVE . Imaging Last 72 hours Impressions Chest X-Ray 07/13/16 0000 Signed Impressions: Service Date/Time: Wednesday, July 13, 2016 23:52 - CONCLUSION: Plain film findings characteristic of worsening CHF with bilateral pleural effusions and concomitant atelectatic changes. Michele Pineda MD . Patient/Family Conference Present at Family Conference: Met with patient. Also present, patient's (Donita). . Family Conference Location: Bedside Issues Discussed: * Palliative care role, purpose, approach * Additional medical, psychosocial, and spiritual history * Patients general health, functional status, and cognitive changes in the months leading up to the current hospitalization * Patient/family understanding of the current medical problems * Patient/family understanding of prognosis * Patients goals of care as best understood from advance directives and/or conversations and/or values * Current medical treatment options and benefits/burdens of those options * Likely scenarios comparing ongoing aggressive care with a transition to comfort measures only * Questions answered to the best of my ability * Palliative care contact information provided . Assessment and Plan Disease Oriented Problem List: (1) ACUTE ON CHRONIC JACOB (2) History of bladder cancer (3) DM (dermatomyositis) (4) Hyperkalemia (5) Bradycardia (6) UTI (urinary tract infection) (7) CHF (congestive heart failure) (8) HTN (hypertension) (9) DM (diabetes mellitus) (10) Hyponatremia (11) Pulmonary hypertension Symptom Scale: (1) Pain 0-10 Scale: Unable to quantify (2) Dyspnea 0-10 Scale: Unable to quantify Pertinent Non-Medical Issues Psychosocial:Patient was born in [place]. He has one sister. 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 Patient stayed in the [employer] for approximately 3 years and received an honorable discharge. He completed 2 years of college. She worked in construction [employer]. The patient was , but his . He has 2 children. Now to Donita are approximately 20 years. Spiritual: Church Catrina Legal: Per [place] statutes, in the absence of written advanced directives healthcare proxy decision-making falls to the patient's Donita Ethical issues impacting care: No known ethical issues impacting care at this time. . Important Contacts Donita Sanon, spouse: [phone] Nelson Madden, son: [phone] . Code Status: No Code (CODE STATUS confirmed with patient and on 07/15/2016. ) Plan * NO CODEDNR * Decision-making: Patient is alert and oriented,with some intermittent confusion. Would recommend joint decision-making with patient's , Donita. Per [place] statutes, in the absence of written advanced directives healthcare proxy decision-making falls to the patient's Donita. * Goals: Patient is considering whether he wishes to return home with HHC or hospice services * Hospice consult placed. Discussed with Brie at hospice intake and Amy hospice admissions nurse. * Discussed with nurse product mgmt dev manager and patient nurse, aware hospice consult is pending. * Discussed with Dr. Najera, awaiting family decision on hospice. * Palliative care contact information provided to the patient and his . * Palliative care will continue to follow this patient throughout his hospitalization to establish trust, assist with symptom management and clarification of medical treatment goals. . Thank you for the opportunity to participate in the care of Mr. Madden. Deepika Miranda Jul 15, 2016 10:42
[2016-07-15] MEDS ORDERED: FUROSEMIDE 40 MG/4 ML VIAL IV PUSH ONE (11:30)
[2016-07-15] MEDS ORDERED: NOVO7030P2 SQ (14:37)
[2016-07-15] MEDS ORDERED: DIFL100T PO (14:37)
[2016-07-15] MEDS ORDERED: MUCI600T PO (14:37)
--- NOTE | 2016-07-15 15:08 | HHI.DS ---
Discharge Summary Admission Date Jul 07, 2016 at 18:43 Discharge Date: Jul 15, 2016 Admitting Diagnosis Acute renal insuffiency, uti, bradycardia (1) Acute renal insufficiency ICD Code: N28.9 Diagnosis: Principal (2) Hyperkalemia ICD Code: E87.5 Diagnosis: Principal (3) UTI (urinary tract infection) ICD Code: N39.0 Diagnosis: Principal (4) Bradycardia ICD Code: R00.1 Diagnosis: Secondary (5) Weakness ICD Code: R53.1 Diagnosis: Principal Procedures No procedures performed. Brief History - From Admission History from patient, ER physician notes, and review of medical records. Patient is somewhat of a poor historian. He initially stated that he came to the hospital because he was very tired. He knew that something happened at the [place] clinic but he was in able to specify it initially. However he states he has been extremely tired for the past 6 weeks. He states he was also having some nausea. But did not vomit. He stated he just was too weak that he could not even lift up his hand to press the TV but 10. He thinks that that is abnormal. He reports this was the reason why he made appointment with his primary care doctor at the [place]. However at the [place] clinic yesterday, patient was found to be hypotensive, with heart rate going between tachycardia and bradycardia as per notes. It was also reported that patient was short of breath and diaphoretic at the clinic. There for that doctor there had sent him to the hospital for evaluation of sepsis. In the emergency room, patient received normal saline 2 L IV fluids total Patient however denies any recent fever/nausea/vomiting/diarrhea. He denies seeing blood in his stool or urine. Also denies any fever. Denies chest pain/palpitations. Denies any falls. CBC/BMP: 07/15/16 0710 Significant Findings Laboratory Tests Test 07/14/16 07/15/16 03:08 07:10 Arterial Blood Oxygen Content 11.2 Vol % (12.0-20.0) Blood Gas Hemoglobin 8.7 G/DL (12.0-16.0) Blood Urea Nitrogen 59 MG/DL (7-18) Creatinine 1.33 MG/DL (0.60-1.30) Estimat Glomerular Filtration 52 ML/MIN (>89) Rate Random Glucose 117 MG/DL (74-106) Imaging Last Impressions Chest X-Ray 07/13/16 0000 Signed Impressions: Service Date/Time: Wednesday, July 13, 2016 23:52 - CONCLUSION: Plain film findings characteristic of worsening CHF with bilateral pleural effusions and concomitant atelectatic changes. Michele Pineda MD Renal Ultrasound 07/08/16 0000 Signed Impressions: Service Date/Time: Friday, July 08, 2016 15:25 - CONCLUSION: There are small right and left pleural effusions. There is no mass or hydronephrosis. Piter Ta MD FACR Lower Extremity Ultrasound 07/08/16 0000 Signed Impressions: Service Date/Time: Friday, July 08, 2016 05:49 - CONCLUSION: Normal examination. Larry Mccullough MD PE at Discharge GENERAL: Obesity, Mild to moderate respiratory distress. SKIN: Superficial ecchymosis HEAD: Atraumatic. Normocephalic. No temporal or scalp tenderness. EYES: . No scleral icterus. No injection or drainage. ENT: Nose without bleeding, purulent drainage or septal hematoma. . Airway patent. NECK: Trachea midline. No JVD Supple, nontender, no meningeal signs. CARDIOVASCULAR: Regular rate and rhythm without murmurs, gallops, or rubs. RESPIRATORY: Decreased breath sounds bilateral, no wheezing but has Crackles on left base. GASTROINTESTINAL: Abdomen soft, non-tender, nondistended. No guarding. : Patient has Rosales catheter. placed Rosales cath by Urology specialist. MUSCULOSKELETAL: Extremities without clubbing, cyanosis, or edema. Right lower extremity much bigger than the left. Bilateral pitting edema about 2+. NEUROLOGICAL: Awake and alert.Motor and sensory grossly within normal limits. Normal speech. Hospital Course This is a pleasant 81 y/o male who has Acute Renal Injury, UTI and Bradycardia, came with weakness, received IV fluids, Hypertension, DM II, CAD status post CABG, CHF, CVA, Bladder cancer, Anemia, Peripheral neuropathy, CKD III, Osteoporosis, Depression, Gout, Patient stable improving Renal condition improving Creatinine 3.04 from 5.07 on admission, his Urine Culture growing Tata Glabrata but because the patient is debilitated and with chronic condition. has Chronic Respiratory Insufficiency, he has Chronic Diastolic and systolic heart failure stable, During the night the patient had Respiratory insufficiency was placed on BiPAP, today At this time discussed with nurse in the room Miss Javier also with physician specialist in the room Miss Kuhn awaiting for final recommendations for discharge. Assessment and Plan 1. Generalized Weakness secondary to Deconditioning multiple admissions to the Hospital, follows at [facility], recurrent UTI, chronic deconditioning, will need [employer], OT/PT for discharge to Rehab. the patient prefer going home on HHC or Hospice asked for Palliative Care at this time has a consult with Palliative care will follow recommendations. 2. UTI on Maxipime continue present care and also today Urine Culture with Tata Glabrata he has chronic debilitating disease I will start treatment with Fluconazole renally adjusted. to 100 mg by mouth daily for 14 days. 3. Electrolyte derangement Improved 4. Bradycardia stable. 5. Acute Kidney Injury due to Sepsis and Urinary Tract infection, the patient has Poor renal function, followed by Nephrology specialist, followed by Doctor Valentin as outpatient, will continue today Lasix 40 mg IV BID, cleared by Nephrology specialist for discharge. 6. Bladder cancer by history. 7. Hypertension controlled. 8. CVA by history 9. Depression stable 10. Anemia on Epogen by Nephrology specialist. 11. Osteoporosis. 12. CHF with mild Exacerbation sever Pulmonary hypertension, as Chronic Combined Systolic and Diastolic Heart failure, Systolic function is mildly reduced with EF 45-50%, Mild to Moderate Mitral regurgitation Moderate Tricuspid regurgitation, Pulmonary artery with Moderate to Severe Pulmonary Hypertension. giving diuretics. 13. Hyponatremia correcting by Nephrology specialist recommended Samsca x 1 14. Urinary Retention related to Urethral stricture formation which is now been dilated, by Urology specialist recommended to leave Rosales cath indwelling for at least one week, follow with his primary Urology specialist Doctor Pablo by Doctor Jeison Tai. 15. Chronic Respiratory Insufficiency on chronic Oxygen management at this time on BiPAP due to Insufficiency. DVT prophylaxison heparin. GI prophylaxis on pantoprazole. No changes to anterior assessment Discussed with patient, Nurse Miss Javier and physician specialist Miss Kuhn his Mrs. Donita Sanon will be contacted later by physician specialist. I already had a meeting with her yesterday but will notify discharge and patient's decision. Doppler US of LE done- negative for DVT Discharge Planning Cleared by Nephrology specialist going home the patient asked for Palliative care to take decision Pt Condition on Discharge: Guarded Discharge Disposition: Rehab Inpatient Discharge Time: > 30 minutes Discharge Instructions DIET: Follow Instructions for: Heart Healthy Diet Activities you can perform: Regular-No Restrictions Satnam Sim MD Jul 15, 2016 15:08
[2016-07-15] MEDS ORDERED: FUROSEMIDE 40 MG/4 ML VIAL IV PUSH SCH (18:00)
== END 2016-07-15 15:59 | DRG 871 ==
LOC: NEPC 15:29 → NEDH 18:43 → NEPGCP 07-08 03:05 → N04B 07-10 18:09
PROVIDERS: ADMIT Internal Medicine; ATTEND Internal Medicine
PROC: 5A09457 Assistance with Respiratory Ventilation, 24-96 Consecutive Hours, Continuous Positive Airway Pressure (ICD-10-PCS; principal; 2016-07-07)
DX: A41.9 Sepsis, unspecified organism (principal); J96.01 Acute respiratory failure with hypoxia; N18.4 Chronic kidney disease, stage 4 (severe); N17.9 Acute kidney failure, unspecified; I13.0 Hypertensive heart and chronic kidney disease with heart failure and stage 1 through stage 4 chronic kidney disease, or unspecified chronic kidney disease; I50.42 Chronic combined systolic (congestive) and diastolic (congestive) heart failure; I27.2 Other secondary pulmonary hypertension; N30.01 Acute cystitis with hematuria; I25.810 Atherosclerosis of coronary artery bypass graft(s) without angina pectoris; E11.22 Type 2 diabetes mellitus with diabetic chronic kidney disease; I08.1 Rheumatic disorders of both mitral and tricuspid valves; G62.9 Polyneuropathy, unspecified; D64.9 Anemia, unspecified; E78.5 Hyperlipidemia, unspecified; Z95.1 Presence of aortocoronary bypass graft; I25.2 Old myocardial infarction; J44.9 Chronic obstructive pulmonary disease, unspecified; K21.9 Gastro-esophageal reflux disease without esophagitis; M10.9 Gout, unspecified; M81.0 Age-related osteoporosis without current pathological fracture; N35.9 Urethral stricture, unspecified; Z51.5 Encounter for palliative care; Z66 Do not resuscitate; Z86.73 Personal history of transient ischemic attack (TIA), and cerebral infarction without residual deficits; Z85.51 Personal history of malignant neoplasm of bladder; Z87.891 Personal history of nicotine dependence; Z95.5 Presence of coronary angioplasty implant and graft; Z96.652 Presence of left artificial knee joint; Z99.81 Dependence on supplemental oxygen; E87.5 Hyperkalemia; E66.9 Obesity, unspecified; F32.9 Major depressive disorder, single episode, unspecified
CPT/HCPCS: 36600; 71010; 76775; 76937; 80048; 80053; 80069; 81001; 82272; 82533; 82550; 82552; 82805; 82948; 83540; 83550; 83605; 83690; 83735; 83880; 84484; 85025; 85610; 85730; 87040; 87086; 87493; 87804; 93005; 93306; 93970; 94002; 94150; 94640; 94664; 96365; 96375; J0610; J0692; J0696; J1644; J1815; J1940; J2543; J3370; J7030; J7050